=== PATIENT | male | born 1955 | race Caucasian/White ===

== ENCOUNTER → 2017-01-15 | Day surgery (SDC) | payer OTHER ==
[2017-01-11 14:11] VITALS: Ht 177.8 cm; Wt 127.3 kg
[~2017-01-15] VITALS: Ht 177.8 cm; Wt 127.3 kg
[~2017-01-15] MED LIST: ASPI81TA28 PO; ATOR-22 PO; CYAN100T PO; ENAL1TAB29 PO; ERGO500037 PO; FURO40TA3 PO; GEMF600T PO; GLC/500 PO; ISOS30TA35 PO; LIDOCAINE HCL 2% 2 ML VIAL (20MG/ML) ONE; METO25TA3 PO; MIDAZOLAM HCL 1 MG/ML 2ML VIAL ONE; ONDANSETRON INJ 2 MG/ML 2 ML VIAL ONE; OXYC-57 PO; PANT40TA PO; PREG1CAP28 PO; PROPOFOL IV EMULSION 10 MG/ML 20 ML VIAL IV ONE; SODIUM CHLORIDE 0.9% 500ML 500 ML IV ONE; SOLI10TA2 PO; TAMS0.4C38 PO
--- NOTE | 2017-01-15 08:45 | Endo History and Physical ---
History & Physical Date of Service: Jan 15, 2017. Chief Complaint: Hx polyps Referring Physician: Jennifer Phelps History of Present Illness 61 yo CM who presents for colonoscopy secondary to history of colon polyps. Past Medical History Hypertension, Kidney Disease Past Surgical History Hx Cardiac Surgery: Yes (HEART CATH, NO STENT; PACEMAKER ) Hx Internal Defibrillator: No Hx Pacemaker: No Hx Abdominal Surgery: No Hx of Implantable Prosthesis: No Hx Post-Op Nausea and Vomiting: No Hx Cancer Surgery: No Hx Thoracic Surgery: No Hx Orthopedic: Yes (L/R TKA, LT GREAT TOE AMPUTATION) Hx Urinary Tract Surgery: No Family History None Social History Smoking Status: Never Smoker Hx Substance Use: Yes (SEE MED LIST) Hx Alcohol Use: No Allergies Coded Allergies: Adhesives (Verified Allergy, Unknown, RASH, 01/11/17) Blue Dyes (Parenteral) (Verified Allergy, Unknown, UNKNOWN RX, 01/11/17) CI Pigment Blue 63 (Verified Adverse Reaction, Mild, CHEST PAIN, WEIGHT LOSS, 01/11/17) Duloxetine (Verified Adverse Reaction, Mild, CHEST PAIN, WEIGHT LOSS, 01/11) Current Medications Reported Home Medications Medications Dose Route/Sig Max Daily Dose Days Date Category Toprol-Xl (Metoprolol Succinate) 25 Mg Tabcr 25 Mg PO QAM 01/11/17 Reported Imdur Ext Rel (Isosorbide Mononitrate) 30 Mg Tabcr 1 Tab PO QAM 01/11/17 Reported Vitamin D 28614 Unit (Ergocalciferol) 50,000 Unit Cap 50,000 Unit PO MONTHLY 01/11/17 Reported Protonix (Pantoprazole Sodium) 40 Mg Tab 40 Mg PO BID 01/11/17 Reported Lyrica (Pregabalin) 75 Mg Cap 75 Mg PO BID 01/11/17 Reported Lasix (Furosemide) 40 Mg Tab 40 Mg PO BID 01/11/17 Reported Vesicare (Solifenacin) 10 Mg Tab 10 Mg PO QAM 07/27/16 Reported Vitamin B-12 (Cyanocobalamin) 100 Mcg Tab 1 Tab PO QAM 07/27/16 Reported Glucophage (Metformin Hcl) 500 Mg Tab 500 Mg PO BID 07/27/16 Reported Lipitor (Atorvastatin Calcium) 20 Mg Tab 20 Mg PO HS 01/22/15 Reported Percocet 5MG/325MG (Oxycodone/Acetaminophen) Tab 1-2 Tablets PO Q4H PRN 12/25/14 Reported Flomax (Tamsulosin Hcl) 0.4 Mg Cap 0.4 Mg PO HS 09/21/14 Reported Lopid (Gemfibrozil) 600 Mg Tab 600 Mg PO BID 04/25/13 Reported Aspirin Ec (Aspirin) 81 Mg Tab 81 Mg PO QPM 04/25/13 Reported Vital Signs Weight (Kilograms): 127.27 Height (Feet): 5 Height (Inches): 10 Date Time Temp Pulse Resp B/P Pulse Ox O2 Delivery O2 Flow Rate FiO2 01/15/17 08:07 36.4 61 18 150/83 96 Room Air Physical Exam General Appearance: WD/WN, no apparent distress Respiratory/Chest: Auscultation: breath sounds normal Cardiovascular: Heart Auscultation: RRR Abdomen: Bowel Sounds: normal Inspection & Palpation: soft, non-distended, no tenderness, guarding & rebound Assessment and Plan Assessment: 61 yo CM who presents for colonoscopy secondary to history of colon polyps. Plan: Proceed with colonoscopy.
--- NOTE | 2017-01-15 09:15 | Discharge Instructions ---
Endoscopy Patient Instructions Date / Procedure(s) Performed Jan 15, 2017. Colonoscopy Allergy Information Coded Allergies: Adhesives (Verified Allergy, Unknown, RASH, 01/11/17) Blue Dyes (Parenteral) (Verified Allergy, Unknown, UNKNOWN RX, 01/11/17) CI Pigment Blue 63 (Verified Adverse Reaction, Mild, CHEST PAIN, WEIGHT LOSS, 01/11/17) Duloxetine (Verified Adverse Reaction, Mild, CHEST PAIN, WEIGHT LOSS, 01/11) Discharge Date / Findings Jan 15, 2017. Poor bowel Prep Internal hemorrhoids Medication Instructions Stopped Medication(s): Metformin OK to resume all medications today as prescribed Reported Home Medications Medications Dose Route/Sig Max Daily Dose Days Date Category Toprol-Xl (Metoprolol Succinate) 25 Mg Tabcr 25 Mg PO QAM 01/11/17 Reported Imdur Ext Rel (Isosorbide Mononitrate) 30 Mg Tabcr 1 Tab PO QAM 01/11/17 Reported Vitamin D 30652 Unit (Ergocalciferol) 50,000 Unit Cap 50,000 Unit PO MONTHLY 01/11/17 Reported Protonix (Pantoprazole Sodium) 40 Mg Tab 40 Mg PO BID 01/11/17 Reported Lyrica (Pregabalin) 75 Mg Cap 75 Mg PO BID 01/11/17 Reported Lasix (Furosemide) 40 Mg Tab 40 Mg PO BID 01/11/17 Reported Vesicare (Solifenacin) 10 Mg Tab 10 Mg PO QAM 07/27/16 Reported Vitamin B-12 (Cyanocobalamin) 100 Mcg Tab 1 Tab PO QAM 07/27/16 Reported Glucophage (Metformin Hcl) 500 Mg Tab 500 Mg PO BID 07/27/16 Reported Lipitor (Atorvastatin Calcium) 20 Mg Tab 20 Mg PO HS 01/22/15 Reported Percocet 5MG/325MG (Oxycodone/Acetaminophen) Tab 1-2 Tablets PO Q4H PRN 12/25/14 Reported Flomax (Tamsulosin Hcl) 0.4 Mg Cap 0.4 Mg PO HS 09/21/14 Reported Lopid (Gemfibrozil) 600 Mg Tab 600 Mg PO BID 04/25/13 Reported Aspirin Ec (Aspirin) 81 Mg Tab 81 Mg PO QPM 04/25/13 Reported Provider Instructions Activity Restrictions - No exercising or heavy lifting for 24 hours. - Do not drink alcohol the day of the procedure. - Do not drive a car or operate machinery until the day after the procedure. - Do not make any important decisions or sign important papers in 24 hours after the procedure. Following Day: - Return to full activity which may include returning to work/school. Diet Start your diet with liquids and light foods (jello, soup, juice, toast). Then eat your usual diet if not nauseated. Treatment For Common After Affects For mild abdominal pain, bloating, or excessive gas: - Rest - Eat lightly - Lie on right side Repeat colonoscopy in 3 months due to poor prep. Follow-Up Information Follow-up with Jennifer Phelps as scheduled Anesthesia Information What You Should Know You have had a procedure that required some medicine to reduce anxiety and discomfort. This treatment is called moderate sedation. After receiving the treatment, you may be sleepy, but you will be able to breathe on your own. The effects of the treatment may last for several hours. Follow these instructions along with Activity/Diet recommendations noted above: * Do NOT do anything where dizziness or clumsiness would be dangerous. * Rest quietly at home today, then you can be up and about tomorrow. * Have a responsible person stay with you the rest of today. * You may have had an I.V. today. If so, you may take the dressing off later today. Recommendations Call your doctor if: * Trouble breathing * Continuous vomiting for more than 24 hours * Temperature above 101 degrees * Severe abdominal pain or bloating * Pain not relieved by pain medicine ordered * There is increased drainage or redness from any incision * A large amount of rectal bleeding greater than 2-3 tablespoons. (If you had a polyp/s removed or have hemorrhoids, a small amount of blood - from the rectum is to be expected.) * You have any unanswered questions or concerns. IN THE EVENT OF A SERIOUS EMERGENCY, GO TO THE NEAREST EMERGENCY ROOM Your discharge instructions were prepared by provider Woodrow Castro. Patient Instructions Signature Page Ck Cerna Patient (or Guardian) Signature/Date: I have read and understand the instructions given to me by my caregivers. Caregiver/RN/Doctor Signature/Date: The above-named patient and/or guardian has received patient instructions on this date. + Original Patient Signature Page (only) stays with chart. Please make copy for patient.
--- NOTE | 2017-01-15 09:25 | GI REPORT ---
Procedure Date: 01/15/2017 8:50 AM Procedure: Colonoscopy Indications: High risk colon cancer surveillance: Personal history of colonic polyps Medicines: Monitored Anesthesia Care Complications: No immediate complications. Estimated Blood Loss: Estimated blood loss: none. Procedure: Pre-Anesthesia Assessment: - Prior to the procedure, a History and Physical was performed, and patient medications and allergies were reviewed. The patient's tolerance of previous anesthesia was also reviewed. The risks and benefits of the procedure and the sedation options and risks were discussed with the patient. All questions were answered, and informed consent was obtained. Prior Anticoagulants: The patient has taken aspirin, last dose was 1 day prior to procedure. ASA Grade Assessment: III - A patient with severe systemic disease. After reviewing the risks and benefits, the patient was deemed in satisfactory condition to undergo the procedure. After I obtained informed consent, the scope was passed under direct vision. Throughout the procedure, the patient's blood pressure, pulse, and oxygen saturations were monitored continuously. The scope was introduced through the mouth, with the intention of advancing to the ileum. The scope was advanced to the ascending colon before the procedure was aborted. Medications were given. After I obtained informed consent, the scope was passed under direct vision. Throughout the procedure, the patient's blood pressure, pulse, and oxygen saturations were monitored continuously. The colonoscopy was aborted due to the difficulty of the procedure. Changing the patient to a supine position and using manual pressure did not allow for the successful completion of the procedure. The patient tolerated the procedure fairly well. The quality of the bowel preparation was poor. The ileocecal valve and the rectum were photographed. Findings: Non-bleeding internal hemorrhoids were found during retroflexion. The hemorrhoids were small. Copious quantities of stool was found in the entire colon, precluding visualization. Lavage of the area was performed using a large amount, resulting in incomplete clearance with continued poor visualization. Impression: - The procedure was aborted due to the difficulty of the procedure. - Preparation of the colon was poor. - Non-bleeding internal hemorrhoids. - Stool in the entire examined colon. - No specimens collected. Recommendation: - Resume previous diet. - Continue present medications. - Repeat colonoscopy in 3 months because the bowel preparation was poor. - Return to primary care physician as previously scheduled. Woodrow Castro DO 01/15/2017 9:24:25 AM This report has been signed electronically. Note Initiated On: 01/15/2017 8:50 AM I attest to the content of the Intraoperative Record and orders documented therein, exceptions below
[2017-01-15 09:47] VITALS: BP 137/74; PULSE 60; O2SAT 97
--- NOTE | 2017-01-15 10:16 | Anesthesiology Progress Note ---
Anesthesia Post Op Note Date & Time Jan 15, 2017 at 10:16 Vital Signs Pain Intensity: 0 Vital Signs Past 12 Hours Date Time Temp Pulse Resp B/P Pulse Ox O2 Delivery O2 Flow Rate FiO2 01/15/17 09:47 60 18 137/74 97 Room Air 01/15/17 09:33 65 18 132/77 97 Room Air 01/15/17 09:18 64 18 150/83 97 Room Air 01/15/17 08:07 36.4 61 18 150/83 96 Room Air Notes Mental Status: alert / awake / arousable, participated in evaluation Pt Amnestic to Procedure: Yes Nausea / Vomiting: adequately controlled Pain: adequately controlled Airway Patency, RR, SpO2: stable & adequate BP & HR: stable & adequate Hydration State: stable & adequate Anesthetic Complications: no major complications apparent
== END | disposition home or self-care (01) ==
LOC: C.GI 07:22
PROVIDERS: ATTEND Internal Medicine
DX: Z12.11 Encounter for screening for malignant neoplasm of colon (principal); Z86.010 Personal history of colon polyps; K64.8 Other hemorrhoids; Z95.0 Presence of cardiac pacemaker; G47.33 Obstructive sleep apnea (adult) (pediatric); I12.9 Hypertensive chronic kidney disease with stage 1 through stage 4 chronic kidney disease, or unspecified chronic kidney disease; N18.2 Chronic kidney disease, stage 2 (mild); E11.22 Type 2 diabetes mellitus with diabetic chronic kidney disease

== ENCOUNTER → 2017-01-19 | Outpatient (CLI) | payer OTHER ==
[~2017-01-19] MED LIST changes: -LIDOCAINE HCL 2% 2 ML VIAL (20MG/ML) ONE; -MIDAZOLAM HCL 1 MG/ML 2ML VIAL ONE; -ONDANSETRON INJ 2 MG/ML 2 ML VIAL ONE; -PROPOFOL IV EMULSION 10 MG/ML 20 ML VIAL IV ONE; -SODIUM CHLORIDE 0.9% 500ML 500 ML IV ONE
--- NOTE | 2017-01-19 11:46 | DIAGNOSTIC IMAGING REPORT ---
LEG LENGTH STUDY (WHOLE LEG) CLINICAL HISTORY: LUMBAGO,LEG LENGTH DISCREPANCY COMPARISON STUDY: No previous studies for comparison. FINDINGS: Bilateral total knee arthroplasties are noted. No fracture or suspicious lesion is identified within visualized skeletal structures. The right femur measures 53.2 cm and the left femur measures 54.2 cm. The right tibia measures 41.2 cm and the left measures 41 cm. IMPRESSION: 1. Right femur length of 53.2 cm and left femur length of 54.2 cm. Right tibia length of 41.2 cm and left tibia length of 41 cm. Total right leg length of 94.4 cm and total left leg length of 95.2 cm. 2. Status post total bilateral knee arthroplasties. Electronically signed by: Kris Johnson M.D. 01/19/2017 11:44 AM Dictated Date/Time: 01/19/2017 11:41 AM
== END | disposition home or self-care (01) ==
LOC: C.RADBC 10:59
PROVIDERS: ATTEND Anesthesiology
DX: M54.5 Low back pain (principal); M21.70 Unequal limb length (acquired), unspecified site

== ENCOUNTER → 2017-01-22 | Outpatient (CLI) | payer OTHER ==
[~2017-01-22] VITALS: Ht 177.8 cm; Wt 129.1 kg
[2017-01-22 15:38] VITALS: BP 108/69; PULSE 87; Ht 177.8 cm; Wt 129.1 kg
== END | disposition home or self-care (01) ==
LOC: C.NEUR 14:50
PROVIDERS: ATTEND Internal Medicine Pulmonary Disease
DX: G47.33 Obstructive sleep apnea (adult) (pediatric) (principal)

== ENCOUNTER → 2017-03-09 | Outpatient (CLI) | payer OTHER ==
[2017-03-09 17:34] LABS: HEMATOCRIT 41.9 % (42-52); MEAN CELL VOLUME 92.9 fL (80-100); MEAN CORPUSCULAR HEMOGLOBIN 31.3 pg (25-34); MEAN CORPUSCULAR HGB CONC 33.7 g/dl (32-36); MEAN PLATELET VOLUME 10.9 fL (7.4-10.4); PLATELET COUNT 231 K/uL (130-400); RED BLOOD COUNT 4.51 M/uL (4.7-6.1); WHITE BLOOD COUNT 6.61 K/uL (4.8-10.8)
[2017-03-09 17:43] LABS: BLOOD UREA NITROGEN 39 mg/dl (7-18); BUN/CREATININE RATIO 27.5 (10-20); CARBON DIOXIDE 28 mmol/L (21-32); CHLORIDE 102 mmol/L (98-107); GLUCOSE 173 mg/dl (70-99); PHOSPHORUS 3.7 mg/dl (2.5-4.9); POTASSIUM 3.9 mmol/L (3.5-5.1); SODIUM 140 mmol/L (136-145)
[2017-03-09 17:47] LABS: URINE APPEARANCE CLEAR (CLEAR); URINE BILIRUBIN NEG (NEG); URINE COLOR YELLOW; URINE EPITHELIAL CELL AUTO 0-5 /lpf (0-5); URINE NITRITE NEG (NEG); URINE SPECIFIC GRAVITY 1.009 (1.000-1.030); UROBILINOGEN NEG (NEG)
[2017-03-09 17:52] LABS: MANUAL MICROSCOPIC REQUIRED? NO; REVIEW REQ? NO
[2017-03-09 17:57] LABS: URINE TOTAL PROTEIN < 5.0 mg/dl (0-11.9)
== END | disposition home or self-care (01) ==
LOC: C.LABBFT 15:29
PROVIDERS: ATTEND Internal Medicine Nephrology
DX: R80.9 Proteinuria, unspecified (principal); E55.9 Vitamin D deficiency, unspecified; N18.3 Chronic kidney disease, stage 3 (moderate); D64.9 Anemia, unspecified

== ENCOUNTER 2017-03-27 09:53 | Emergency (ER) | payer OTHER ==
[~2017-03-27] VITALS: Ht 177.8 cm; Wt 134.2 kg
[2017-03-27 09:58] VITALS: TEMP 36.8; Ht 177.8 cm; Wt 134.2 kg
--- NOTE | 2017-03-27 10:29 | EMERGENCY ROOM VISIT NOTE ---
History Report prepared by Juan: Sourav Thompson Under the Supervision of: Dr. Amy Giron D.O. First contact with patient: 10:07 Chief Complaint: SWELLING TO EXTREMITY Stated Complaint: SWELLING TO RIGHT ARM History of Present Illness The patient is a 61 year old male who presents to the Emergency Room with complaints of worsening swelling to his right arm beginning this morning. He notes he was seen at the [facility] at [place] 4 days ago and was told he has cellulitis in his right forearm. He notes his symptoms began about 3 to 4 days before he was seen at the clinic. He was given Bactrim and has been on Bactrim for 4 days, but has not had relief of his symptoms. The patient reports the area of abscess began oozing this morning, and that his hand and arm began to swell. He adds that the area on his right forearm has been hard since the onset of his symptoms, and is currently tender. The patient notes having a history of cellulitis in his legs, but denies any new leg cramping or swelling currently. He adds that he has diabetes, and his sugar level was 140 yesterday; he did not check his levels this morning. The patient denies having any fever, abdominal pain, nausea, vomiting, or diarrhea, but does admit to some chills. Source of History: patient Onset: this morning Position: arm (right) Quality: other (swelling; arm pain) Timing: worsening Associated Symptoms: + chills, No abdominal pain, No diarrhea, No fevers, No nausea, No vomiting Note: Patient denies any new leg cramping or swelling. Review of Systems See HPI for pertinent positives & negatives. A total of 10 systems reviewed and were otherwise negative. Past Medical & Surgical Medical Problems: (1) bradycardia, second degree heart block (2) CAROTID ARTERY OCCLUSION W O CEREBRAL INFARCTION (3) Diabetic peripheral neuropathy associated with type 2 diabetes mellitus (4) Diabetic retinopathy (5) DIAPHRAGMATIC HERNIA (6) DM type 2 (diabetes mellitus, type 2) (7) ESOPHAGEAL STRICTURE (8) GERD (gastroesophageal reflux disease) (9) History of compression fracture of spine (10) History of diabetic ulcer of foot (11) History of osteomyelitis (12) History of pleurisy (13) HYPERLIPIDEMIA NEC/NOS (14) HYPERTENSION NOS (15) Loss of sensation (16) NEUROPATHY IN DIABETES (17) Obstructive sleep apnea (18) Osteoarthritis (19) Status post partial amputation of foot Surgical Problems: (1) Amputated great toe of left foot (2) H/O arthroscopy of knee (3) History of ear surgery (4) History of right knee joint replacement Family History Diabetes mellitus Heart disease Hypertension Social History Smoking Status: Never Smoker Alcohol Use: none Drug Use: none Marital Status: Housing Status: lives with friends Occupation Status: disabled Current/Historical Medications Scheduled Aspirin (Aspirin Ec), 81 MG PO QPM Atorvastatin (Lipitor), 20 MG PO HS Cyanocobalamin (Vitamin B-12), 1 TAB PO QAM Enalapril Maleate (Vasotec), 2.5 MG PO DAILY Ergocalciferol (Vitamin D 74502 Unit), 50,000 UNIT PO WK Furosemide (Lasix), 40 MG PO BID Gemfibrozil (Lopid), 600 MG PO BID Isosorbide Mononitrate Ext Rel (Imdur Ext Rel), 1 TAB PO QAM Metformin Hcl (Glucophage), 500 MG PO BID Metoprolol Succ (Toprol Xl) (Toprol-Xl), 25 MG PO QAM Pantoprazole (Protonix), 40 MG PO BID Pregabalin (Lyrica), 75 MG PO BID Solifenacin (Vesicare), 10 MG PO QAM Tamsulosin Hcl (Flomax), 0.4 MG PO HS Scheduled PRN Oxycodone/Acetaminophen 5MG/325MG (Percocet 5MG/325MG), 1-2 TABLETS PO Q4H PRN for Pain Allergies Coded Allergies: Adhesives (Verified Allergy, Unknown, RASH, 03/27/17) Blue Dyes (Parenteral) (Verified Allergy, Unknown, UNKNOWN RX, 03/27/17) CI Pigment Blue 63 (Verified Adverse Reaction, Mild, CHEST PAIN, WEIGHT LOSS, 03/27/17) Duloxetine (Verified Adverse Reaction, Mild, CHEST PAIN, WEIGHT LOSS, 03/27) Physical Exam Vital Signs Date Time Temp Pulse Resp B/P Pulse Ox O2 Delivery O2 Flow Rate FiO2 03/27/17 14:28 79 20 120/68 94 Room Air 03/27/17 12:53 60 117/70 90 Room Air 03/27/17 11:50 60 96/51 90 Room Air 03/27/17 09:58 36.8 64 18 122/77 93 Room Air Physical Exam General: Obese man. HEENT: Head - normocephalic and atraumatic Pupils are equal, round, and reactive to light. Extraocular eye muscles are intact, and sclera are anicteric. Nose - moist nasal mucosa without discharge. Mouth - moist buccal mucosa. Oropharynx is nonerythematous and there is no tonsillar exudate or edema noted. Neck: Supple; no JVD, nuchal rigidity, cervical lymphadenopathy. Heart: Regular rate and rhythm. There is a normal S1 and S2 with no murmurs, clicks, or gallops appreciated. Lungs: Clear to auscultation bilaterally with no wheezes, rales, or rhonchi. Abdomen: Soft, completely nontender, nondistended, with good bowel sounds. There are no palpable pulsatile masses or hepatosplenomegaly. There is no guarding, rigidity, or rebound noted. Extremities: Erythema and edema from the right elbow extending down into the right hand. Area of skin abscess at proximal right forearm. There are easily palpable peripheral pulses. Skin: warm and dry with good turgor and no rashes. Medical Decision & Procedures Laboratory Results 03/27/17 10:25 Red Blood Count 4.18, Mean Corpuscular Volume 92.3, Mean Corpuscular Hemoglobin 31.6, Mean Corpuscular Hemoglobin Concent 34.2, Mean Platelet Volume 9.7, Neutrophils (%) (Auto) 75.4, Lymphocytes (%) (Auto) 12.1, Monocytes (%) (Auto) 11.4, Eosinophils (%) (Auto) 0.5, Basophils (%) (Auto) 0.2, Neutrophils # (Auto ) 7.13, Lymphocytes # (Auto) 1.15, Monocytes # (Auto) 1.08, Eosinophils # (Auto ) 0.05, Basophils # (Auto) 0.02 03/27/17 10:25 Test 03/27/17 10:25 White Blood Count 9.47 K/uL (4.8-10.8) Red Blood Count 4.18 M/uL (4.7-6.1) Hemoglobin 13.2 g/dL (14.0-18.0) Hematocrit 38.6 % (42-52) Mean Corpuscular Volume 92.3 fL (80-100) Mean Corpuscular Hemoglobin 31.6 pg (25-34) Mean Corpuscular Hemoglobin Concent 34.2 g/dl (32-36) Platelet Count 227 K/uL (130-400) Mean Platelet Volume 9.7 fL (7.4-10.4) Neutrophils (%) (Auto) 75.4 % Lymphocytes (%) (Auto) 12.1 % Monocytes (%) (Auto) 11.4 % Eosinophils (%) (Auto) 0.5 % Basophils (%) (Auto) 0.2 % Neutrophils # (Auto) 7.13 K/uL (1.4-6.5) Lymphocytes # (Auto) 1.15 K/uL (1.2-3.4) Monocytes # (Auto) 1.08 K/uL (0.11-0.59) Eosinophils # (Auto) 0.05 K/uL (0-0.5) Basophils # (Auto) 0.02 K/uL (0-0.2) RDW Standard Deviation 48.2 fL (36.4-46.3) RDW Coefficient of Variation 14.3 % (11.5-14.5) Immature Granulocyte % (Auto) 0.4 % Immature Granulocyte # (Auto) 0.04 K/uL (0.00-0.02) Anion Gap 9.0 mmol/L (3-11) Est Creatinine Clear Calc Drug Dose 58.7 ml/min Estimated GFR () 45.7 Estimated GFR (Non- 39.5 BUN/Creatinine Ratio 18.8 (10-20) Calcium Level 8.8 mg/dl (8.5-10.1) Laboratory results per my review. Medications Administered Medications (Trade) Dose Ordered Sig/John Route Start Time Stop Time Status Last Admin Dose Admin Lidocaine HCl 20 ml 20 ml ONE ONCE INFIL 03/27/17 10:30 03/27/17 10:31 DC 03/27/17 11:03 20 ML Daptomycin 600 mg/ Sodium Chloride 62 ml @ 100 mls/hr NOW STAT IV 03/27/17 12:51 03/27/17 13:28 DC 03/27/17 13:28 100 MLS/HR Sodium Chloride (Nss 500ml) 500 ml @ 999 mls/hr Q31M STAT IV 03/27/17 12:58 03/27/17 13:28 DC 03/27/17 13:28 999 MLS/HR Procedure Medications Ordered: 1030: Ordered Lidocaine HCl 20 ml INFIL. 1251: Ordered Daptomycin 600 mg/Sodium Chloride 62 ml @ 100 mls/hr IV. 1258: Ordered NSS 500 ml @ 999 mls/hr IV. Incision & Drainage Indication: Abscess. Location: Right proximal forearm Verbal consent was obtained. A time out was taken and the correct patient and site identified. The skin was prepped with betadine and a sterile field set. The wound was anesthetized with 4 ml of 1% lidocaine without epinephrine. The abscess cavity was entered with a number 11 blade and pus was expressed. Copious irrigation was performed using saline. The wound was explored for foreign bodies and none found. Debridement was not performed. sterile dressing applied. Detailed wound care instructions and signs and symptoms of worsening infection reviewed with the patient. No complications and the patient tolerated the procedure well. ED Course 1012: Past medical records reviewed. The patient was evaluated in room C10. A complete history and physical exam was performed. An IV lock was initiated and labs were drawn as above. 1030: Ordered Lidocaine HCl 20 ml INFIL. An I&D was performed of the abscess in the right forearm. 1251: Ordered Daptomycin 600 mg/Sodium Chloride 62 ml @ 100 mls/hr IV. 1258: Ordered NSS 500 ml @ 999 mls/hr IV. 1419: I reassessed the patient. He received his antibiotics and will follow up here tomorrow. 1420: Upon reevaluation, the patient is doing well. I discussed findings and results with the patient. He verbalized agreement of the treatment plan. The patient was discharged home. Medical Decision The patient is a 61 year old male who presents to the Emergency Room with complaints of worsening swelling to his right arm beginning this morning. Differentials Diagnoses: Skin abscess, cellulitis, osteomyelitis, and diabetic ulcer. Laboratory Interpretation: BUN is 34; creatinine is 1.8; glucose is 137; no leukocytosis; mild anemia with a hemoglobin of 13.2. This is a 61-year-old male patient presents to the emergency Department cellulitis that is not improving on Bactrim. The patient an obvious fluctuant abscess in the right proximal forearm. It was incised and drained as described above. The patient received a dose of IV daptomycin here in the emergency room. IV lock was left in place. The patient will see me back in the emergency department within 24 hours to have the wound rechecked. I spoke with the patient about his worsening renal insufficiency. He will follow-up with his PCP with regards to this. Impression Primary Impression: Abscess of right forearm Additional Impression: Renal insufficiency Scribe Attestation The scribe's documentation has been prepared under my direction and personally reviewed by me in its entirety. I confirm that the note above accurately reflects all work, treatment, procedures, and medical decision making performed by me. Departure Information Dispostion Home / Self-Care Referrals No Doctor, Assigned (PCP) Patient Instructions ED Abscess Tong, My [facility] Additional Instructions Leave IV in place. Rest. Keep wound clean and dry. Return by noon tomorrow to see Dr. Giron Problem Qualifiers
[2017-03-27] MEDS ORDERED: XYLOCAINE 1%/SOD BICARB 20 ML VIAL INFIL ONE (10:30)
[2017-03-27 10:47] LABS: BASO % 0.2 %; BASO ABS # 0.02 K/uL (0-0.2); COMPLETE YES; EOS % 0.5 %; HEMATOCRIT 38.6 % (42-52); IG% 0.4 %; LYMPH % 12.1 %; LYMPH ABS # 1.15 K/uL (1.2-3.4); MEAN CELL VOLUME 92.3 fL (80-100); MEAN CORPUSCULAR HEMOGLOBIN 31.6 pg (25-34); MEAN CORPUSCULAR HGB CONC 34.2 g/dl (32-36); MEAN PLATELET VOLUME 9.7 fL (7.4-10.4); MONO % 11.4 %; NEUT % 75.4 %; PLATELET COUNT 227 K/uL (130-400); RED BLOOD COUNT 4.18 M/uL (4.7-6.1); WHITE BLOOD COUNT 9.47 K/uL (4.8-10.8)
[2017-03-27 11:09] LABS: BUN/CREATININE RATIO 18.8 (10-20); CALCIUM 8.8 mg/dl (8.5-10.1); CREATININE 1.8 mg/dl (0.60-1.40); POTASSIUM 3.7 mmol/L (3.5-5.1)
[2017-03-27] MEDS ORDERED: DAPTOmycin IV 600 MG in SODIUM CHLORIDE 0.9% 50ML 50 ML IV STA (12:51)
[2017-03-27] MEDS ORDERED: SODIUM CHLORIDE 0.9% 500ML 500 ML IV STA (12:58)
[2017-03-27 14:28] VITALS: BP 120/68; PULSE 79; O2SAT 94
--- NOTE | 2017-03-29 13:54 | Pharmacy Progress Note ---
ED Pharmacist Culture FollowUp Date of Service: March 29, 2017. Patient was evaluated in the ED on 03/27/17 for R forearm abscess/cellulitis. The deep wound cx from that day grew MSSA. The patient was admitted to [facility] that day and is currently being treated with IV daptomycin 4mg/kg IV Q 24 hrs. Upon review of further cultures, the patient's blood cultures are also growing staph aureus. I contacted hospitalist, Dr Quintanilla, to notify her of positive blood cx results and suggest increasing the dose of daptomycin to 6mg/kg Q 24 hrs for staph bacteremia - verbal order obtained. No further action required from ED standpoint.
--- NOTE | 2017-03-30 10:57 | Pharmacy Progress Note ---
ED Pharmacist Culture FollowUp Date of Service: March 30, 2017. Patient remains hospitalized and is receiving Daptomycin 6mg/kg IV Q 24 hrs for staph bacteremia + R forearm cellulitis/abscess. Blood cx's and wound cx sensitivities finalized today, both staph aureus species are sensitive to daptomycin. One blcx is growing CoN staph Not Lugdunensis, this is likely a contaminant; but if were pathogenic Daptomycin would also over good coverage. No action required at this time.
== END 2017-03-27 14:31 | disposition home or self-care (01) ==
LOC: C.EDB 09:54 → C.EDC 14:31
DX: L02.413 Cutaneous abscess of right upper limb (principal); N28.9 Disorder of kidney and ureter, unspecified; E11.42 Type 2 diabetes mellitus with diabetic polyneuropathy; E78.5 Hyperlipidemia, unspecified; I10 Essential (primary) hypertension; M19.90 Unspecified osteoarthritis, unspecified site; E11.319 Type 2 diabetes mellitus with unspecified diabetic retinopathy without macular edema; K21.9 Gastro-esophageal reflux disease without esophagitis; Z89.439 Acquired absence of unspecified foot; Z89.412 Acquired absence of left great toe; Z98.890 Other specified postprocedural states; Z96.651 Presence of right artificial knee joint; Z83.3 Family history of diabetes mellitus; Z82.49 Family history of ischemic heart disease and other diseases of the circulatory system; Z79.82 Long term (current) use of aspirin; Z79.84 Long term (current) use of oral hypoglycemic drugs; Z79.899 Other long term (current) drug therapy

== ENCOUNTER 2017-03-28 12:46 | Inpatient (IN) | payer OTHER ==
[~2017-03-28] VITALS: Ht 177.8 cm; Wt 133.9 kg
--- NOTE | 2017-03-28 13:21 | EMERGENCY ROOM VISIT NOTE ---
History Report prepared by Juan: Sourav Thompson Under the Supervision of: Dr. Amy Giron D.O. First contact with patient: 13:01 Chief Complaint: WOUND RECHECK Stated Complaint: RECHECK ON ARM History of Present Illness The patient is a 61 year old male who presents to the Emergency Room with complaints of a recheck of a wound on his right arm. He was here yesterday for an abscess to his right forearm. He was given antibiotics, and is here for a recheck. The patient notes the right forearm is still somewhat tender, and reports some abdominal pain and nausea. He did not check his sugar levels. Source of History: patient Onset: today Position: other (right forearm) Quality: other (wound recheck) Timing: other (episode) Associated Symptoms: + abdominal pain, + nausea Note: Patient notes some tenderness in forearm. Review of Systems See HPI for pertinent positives & negatives. A total of 10 systems reviewed and were otherwise negative. Past Medical & Surgical Medical Problems: (1) bradycardia, second degree heart block (2) CAROTID ARTERY OCCLUSION W O CEREBRAL INFARCTION (3) Diabetic peripheral neuropathy associated with type 2 diabetes mellitus (4) Diabetic retinopathy (5) DIAPHRAGMATIC HERNIA (6) DM type 2 (diabetes mellitus, type 2) (7) ESOPHAGEAL STRICTURE (8) GERD (gastroesophageal reflux disease) (9) History of compression fracture of spine (10) History of diabetic ulcer of foot (11) History of osteomyelitis (12) History of pleurisy (13) HYPERLIPIDEMIA NEC/NOS (14) HYPERTENSION NOS (15) Loss of sensation (16) NEUROPATHY IN DIABETES (17) Obstructive sleep apnea (18) Osteoarthritis (19) Status post partial amputation of foot Surgical Problems: (1) Amputated great toe of left foot (2) H/O arthroscopy of knee (3) History of ear surgery (4) History of right knee joint replacement Family History Diabetes mellitus Heart disease Hypertension Social History Smoking Status: Never Smoker Alcohol Use: none Drug Use: none Marital Status: Housing Status: lives with friends Occupation Status: disabled Current/Historical Medications Scheduled Aspirin (Aspirin Ec), 81 MG PO QPM Atorvastatin (Lipitor), 20 MG PO HS Cyanocobalamin (Vitamin B-12), 1 TAB PO QAM Enalapril Maleate (Vasotec), 2.5 MG PO DAILY Ergocalciferol (Vitamin D 50577 Unit), 50,000 UNIT PO WK Furosemide (Lasix), 40 MG PO BID Gemfibrozil (Lopid), 600 MG PO BID Isosorbide Mononitrate Ext Rel (Imdur Ext Rel), 1 TAB PO QAM Metformin Hcl (Glucophage), 500 MG PO BID Metoprolol Succ (Toprol Xl) (Toprol-Xl), 25 MG PO QAM Pantoprazole (Protonix), 40 MG PO BID Pregabalin (Lyrica), 75 MG PO BID Solifenacin (Vesicare), 10 MG PO QAM Tamsulosin Hcl (Flomax), 0.4 MG PO HS Scheduled PRN Oxycodone/Acetaminophen 5MG/325MG (Percocet 5MG/325MG), 1-2 TABLETS PO Q4H PRN for Pain Allergies Coded Allergies: Adhesives (Verified Allergy, Unknown, RASH, 03/27/17) Blue Dyes (Parenteral) (Verified Allergy, Unknown, UNKNOWN RX, 03/27/17) CI Pigment Blue 63 (Verified Adverse Reaction, Mild, CHEST PAIN, WEIGHT LOSS, 03/27/17) Duloxetine (Verified Adverse Reaction, Mild, CHEST PAIN, WEIGHT LOSS, 03/27) Physical Exam Vital Signs Date Time Temp Pulse Resp B/P Pulse Ox O2 Delivery O2 Flow Rate FiO2 03/28/17 14:48 59 18 114/62 92 Room Air 03/28/17 12:53 36.9 67 20 132/68 92 Room Air Physical Exam Neck: Supple; no JVD, nuchal rigidity, cervical lymphadenopathy Heart: Regular rate and rhythm. There is a normal S1 and S2 with no murmurs, clicks, or gallops appreciated. Lungs: Clear to auscultation bilaterally with no wheezes, rales, or rhonchi. Abdomen: Soft, completely nontender, nondistended, with good bowel sounds. There are no palpable pulsatile masses or hepatosplenomegaly. There is no guarding, rigidity, or rebound noted. Extremities: Persistent erythema and edema to the right forearm and hand. Proximal forearm wound still draining daily pus. This appears fluctuant. Skin: warm and dry with good turgor and no rashes. Medical Decision & Procedures ER Provider Diagnostic Interpretation: Radiology results as stated below per my review and the radiologist's interpretation: RIGHT FOREARM 2 VIEWS ROUTINE FINDINGS: Note is made of a punctate 2 mm radiodensity along the lateral aspect of the distal right radius. This could reflect a small foreign body. No additional foreign bodies are identified on this exam. There are soft tissue swelling of the right forearm. There is no radiographic evidence of ostomy lies of the right radius or ulna. IMPRESSION: 1. No acute fracture or radiographic evidence of osteomyelitis of the right radius or ulna. 2. Punctate metallic density of the distal right forearm, along the lateral dorsal aspect of the distal right radius. This could reflect a tiny foreign body which is not at the site of soft tissue swelling/wound. Electronically signed by: Kris Johnson M.D. 03/28/2017 2:30 PM Dictated Date/Time: 03/28/2017 2:25 PM Laboratory Results 03/28/17 13:35 Red Blood Count 3.89, Mean Corpuscular Volume 91.3, Mean Corpuscular Hemoglobin 31.1, Mean Corpuscular Hemoglobin Concent 34.1, Mean Platelet Volume 10.0, Neutrophils (%) (Auto) 73.7, Lymphocytes (%) (Auto) 12.8, Monocytes (%) (Auto) 12.3, Eosinophils (%) (Auto) 0.5, Basophils (%) (Auto) 0.4, Neutrophils # (Auto ) 5.84, Lymphocytes # (Auto) 1.01, Monocytes # (Auto) 0.97, Eosinophils # (Auto ) 0.04, Basophils # (Auto) 0.03 Test 03/28/17 13:35 White Blood Count 7.91 K/uL (4.8-10.8) Red Blood Count 3.89 M/uL (4.7-6.1) Hemoglobin 12.1 g/dL (14.0-18.0) Hematocrit 35.5 % (42-52) Mean Corpuscular Volume 91.3 fL (80-100) Mean Corpuscular Hemoglobin 31.1 pg (25-34) Mean Corpuscular Hemoglobin Concent 34.1 g/dl (32-36) Platelet Count 219 K/uL (130-400) Mean Platelet Volume 10.0 fL (7.4-10.4) Neutrophils (%) (Auto) 73.7 % Lymphocytes (%) (Auto) 12.8 % Monocytes (%) (Auto) 12.3 % Eosinophils (%) (Auto) 0.5 % Basophils (%) (Auto) 0.4 % Neutrophils # (Auto) 5.84 K/uL (1.4-6.5) Lymphocytes # (Auto) 1.01 K/uL (1.2-3.4) Monocytes # (Auto) 0.97 K/uL (0.11-0.59) Eosinophils # (Auto) 0.04 K/uL (0-0.5) Basophils # (Auto) 0.03 K/uL (0-0.2) RDW Standard Deviation 47.5 fL (36.4-46.3) RDW Coefficient of Variation 14.1 % (11.5-14.5) Immature Granulocyte % (Auto) 0.3 % Immature Granulocyte # (Auto) 0.02 K/uL (0.00-0.02) Erythrocyte Sedimentation Rate 41 mm/hr (0-14) C-Reactive Protein 16.50 mg/dl (0-0.29) Laboratory results per my review. Medications Administered Medications (Trade) Dose Ordered Sig/John Route Start Time Stop Time Status Last Admin Dose Admin Ondansetron HCl (Zofran Inj) 4 mg NOW STAT IV 03/28/17 13:26 03/28/17 13:28 DC 03/28/17 13:34 4 MG Procedure Medications Ordered: 1326: Ordered Zofran Inj 4 mg IV. ED Course 1315: Past medical records reviewed. The patient was evaluated in room D6. A complete history and physical exam was performed. The wound was undressed and does not appear much improved from yesterday. 1326: The patient is complaining of not given. I Ordered Zofran Inj 4 mg IV. Labs were drawn to compared to yesterday. 1451: I updated the patient. 1453: Discussed the patient's case with Dr. Junior. The patient will be evaluated for further management. Medical Decision The patient is a 61 year old male who presents to the Emergency Room with complaints of a recheck of a wound on his right arm. Differential Diagnoses: Cellulitis, wound infection, and osteomyelitis. Laboratory Interpretations: Lactic is 0.79; WBC down to 7.9; hemoglobin is 12.1 ; sed rate of 41; C-reactive protein is 16.5. The patient went for an x-ray of the right forearm to rule out possibility of osteomyelitis. This was negative. However, the wound did not appear improved at all despite having eye yesterday and IV antibiotics. I feel the patient will require additional I & D and continuous IV antibiotics The patient has persistent cellulitis about the arm. Consults Time Called: [id number] Consulting Physician: Dr. Junior, [facility] Returned Call: [phone] Discussed the patient's case with Dr. Junior. The patient will be evaluated for further management. Impression Primary Impression: Abscess of right forearm Additional Impression: Cellulitis of right forearm Scribe Attestation The scribe's documentation has been prepared under my direction and personally reviewed by me in its entirety. I confirm that the note above accurately reflects all work, treatment, procedures, and medical decision making performed by me. Departure Information Dispostion Being Evaluated By Hospitalist Referrals No Doctor, Assigned (PCP) Patient Instructions My [facility] Problem Qualifiers
[2017-03-28] MEDS ORDERED: ONDANSETRON INJ 2 MG/ML 2 ML VIAL IV STA (13:26)
--- NOTE | 2017-03-28 14:32 | DIAGNOSTIC IMAGING REPORT ---
RIGHT FOREARM 2 VIEWS ROUTINE CLINICAL HISTORY: Right forearm wound. Evaluate for osteomyelitis. COMPARISON: None FINDINGS: Note is made of a punctate 2 mm radiodensity along the lateral aspect of the distal right radius. This could reflect a small foreign body. No additional foreign bodies are identified on this exam. There are soft tissue swelling of the right forearm. There is no radiographic evidence of ostomy lies of the right radius or ulna. IMPRESSION: 1. No acute fracture or radiographic evidence of osteomyelitis of the right radius or ulna. 2. Punctate metallic density of the distal right forearm, along the lateral dorsal aspect of the distal right radius. This could reflect a tiny foreign body which is not at the site of soft tissue swelling/wound. Electronically signed by: Kris Johnson M.D. 03/28/2017 2:30 PM Dictated Date/Time: 03/28/2017 2:25 PM
[2017-03-28 14:39] LABS: BASO % 0.4 %; BASO ABS # 0.03 K/uL (0-0.2); COMPLETE YES; EOS % 0.5 %; HEMATOCRIT 35.5 % (42-52); IG% 0.3 %; LYMPH % 12.8 %; LYMPH ABS # 1.01 K/uL (1.2-3.4); MEAN CELL VOLUME 91.3 fL (80-100); MEAN CORPUSCULAR HEMOGLOBIN 31.1 pg (25-34); MEAN CORPUSCULAR HGB CONC 34.1 g/dl (32-36); MONO % 12.3 %; NEUT % 73.7 %; PLATELET COUNT 219 K/uL (130-400); RED BLOOD COUNT 3.89 M/uL (4.7-6.1); WHITE BLOOD COUNT 7.91 K/uL (4.8-10.8)
[2017-03-28] MEDS ORDERED: ACETAMINOPHEN 325 MG TAB PO PRN (16:00)
[2017-03-28] MEDS ORDERED: DEXTROSE 50% 50 ML SYR IV PRN (16:00)
[2017-03-28] MEDS ORDERED: GLUCAGON FOR INJ 1 MG VIAL SQ PRN (16:00)
[2017-03-28] MEDS ORDERED: ONDANSETRON INJ 2 MG/ML 2 ML VIAL IV PRN (16:00)
[2017-03-28] MEDS ORDERED: MAGNESIUM HYDROXIDE SUSP 30 ML UDC PO PRN (16:00)
[2017-03-28] MEDS ORDERED: GLUCOSE 40% GEL 15 GM TUBE PO PRN (16:00)
[2017-03-28] MEDS ORDERED: GLUCOSE 10 TABS/TUBE PO PRN (16:00)
[2017-03-28] MEDS ORDERED: OXYCODONE/ACETAMINOPHEN 5-325 TAB PO PRN (16:15)
--- NOTE | 2017-03-28 16:26 | History and Physical ---
History & Physical Date & Time of Service: Mar 28, 2017 at 16:11 Chief Complaint: Recheck On Arm Primary Care Physician: Jennifer Phelps M.D. History of Present Illness Source: patient 61 y/o M c/o R arm pain. Pt came to the ED for this issue yesterday. Pt reported that he had been seen at an urgent care for the same issue a few days prior. He was put on bactrim at that time, however the pain to his R UE continued to worsen. In the ED, pt had an I&D which was reported by the providing physician as having quite substantial drainage. He was given a dose of dapto and d/c'd with IV access to return today for follow-up. Upon reassessment, Dr. Giron feels the redness is somewhat improved, however the amount of ongoing drainage is still quite substantial given the I&D and dapto use. Blood cx done in the ED on 03/27 are still pending. Pt still with substantial pain to his R forearm. Pt denies any recent hx of trauma or other break in his skin. 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 No hx of major trauma with metal, but he states that in the type of work he did there were frequently more minor injuries. He did have an infection in his foot which [facility], but no IV abx and this was about 2 years ago. Pt has felt fine otherwise. Pt denies fever, SOB, chest pain, abd pain, n/v/c/d, LE pain. Pt always has LE swelling and this is at baseline. ROS as noted above, otherwise neg. Past Medical/Surgical History Medical Problems: (1) CAROTID ARTERY OCCLUSION W O CEREBRAL INFARCTION Status: Chronic (2) Diabetic retinopathy Permanent Comment: mild Status: Chronic (3) DIAPHRAGMATIC HERNIA Status: Chronic (4) DM type 2 (diabetes mellitus, type 2) Status: Chronic (5) ESOPHAGEAL STRICTURE Status: Chronic (6) GERD (gastroesophageal reflux disease) Status: Chronic (7) History of compression fracture of spine Status: Chronic (8) History of osteomyelitis Permanent Comment: L great toe, s/p amputation 2010 Status: Chronic (9) History of pleurisy Permanent Comment: 2004 Status: Chronic (10) HYPERLIPIDEMIA NEC/NOS Status: Chronic (11) HYPERTENSION NOS Status: Chronic (12) NEUROPATHY IN DIABETES Status: Chronic (13) Obstructive sleep apnea Status: Chronic (14) Osteoarthritis Status: Chronic Surgical Problems: (1) Amputated great toe of left foot Status: Chronic (2) H/O arthroscopy of knee Permanent Comment: bilateral Status: Chronic (3) History of ear surgery Permanent Comment: replace middle ear bone Status: Chronic (4) History of right knee joint replacement Status: Chronic Family History Family history was reviewed; no changes noted. Social History Smoking Status: Never Smoker Alcohol Use: none Drug Use: none Marital Status: Housing status: lives alone Occupational Status: disabled Immunizations History of Influenza Vaccine: N/A History of Tetanus Vaccine?: Yes History of Pneumococcal: Yes History of Hepatitis B Vaccine: No Multi-Drug Resistant Organisms History of MDRO: No Allergies Coded Allergies: Adhesives (Verified Allergy, Unknown, RASH, 03/27/17) Blue Dyes (Parenteral) (Verified Allergy, Unknown, UNKNOWN RX, 03/27/17) CI Pigment Blue 63 (Verified Adverse Reaction, Mild, CHEST PAIN, WEIGHT LOSS, 03/27/17) Duloxetine (Verified Adverse Reaction, Mild, CHEST PAIN, WEIGHT LOSS, 03/27) Home Medications Scheduled Aspirin (Aspirin Ec), 81 MG PO QPM Atorvastatin (Lipitor), 20 MG PO HS Cyanocobalamin (Vitamin B-12), 1 TAB PO QAM Enalapril Maleate (Vasotec), 2.5 MG PO DAILY Ergocalciferol (Vitamin D 63471 Unit), 50,000 UNIT PO WK Furosemide (Lasix), 40 MG PO BID Gemfibrozil (Lopid), 600 MG PO BID Isosorbide Mononitrate Ext Rel (Imdur Ext Rel), 1 TAB PO QAM Metformin Hcl (Glucophage), 500 MG PO BID Metoprolol Succ (Toprol Xl) (Toprol-Xl), 25 MG PO QAM Pantoprazole (Protonix), 40 MG PO BID Pregabalin (Lyrica), 75 MG PO BID Solifenacin (Vesicare), 10 MG PO QAM Tamsulosin Hcl (Flomax), 0.4 MG PO HS Scheduled PRN Oxycodone/Acetaminophen 5MG/325MG (Percocet 5MG/325MG), 1-2 TABLETS PO Q4H PRN for Pain Physical Exam Vital Signs Date Time Temp Pulse Resp B/P Pulse Ox O2 Delivery O2 Flow Rate FiO2 03/28/17 14:48 59 18 114/62 92 Room Air 03/28/17 12:53 36.9 67 20 132/68 92 Room Air General Appearance: no apparent distress, + obese Head: normocephalic, atraumatic Respiratory/Chest: normal breath sounds, no respiratory distress Cardiovascular: regular rate, rhythm, normal peripheral pulses Abdomen/GI: non tender, soft Extremities/Musculoskelatal: no calf tenderness, + pedal edema (trace, pitting) Neurologic/Psych: alert, normal mood/affect, oriented x 3 Skin: warm/dry, + pertinent finding (R forearm with open incision site that is with purulent drainage, redness noted) Diagnostics Laboratory Results Results Past 24 Hours Test 03/28/17 13:35 Range/Units White Blood Count 7.91 4.8-10.8 K/uL Red Blood Count 3.89 4.7-6.1 M/uL Hemoglobin 12.1 14.0-18.0 g/dL Hematocrit 35.5 42-52 % Mean Corpuscular Volume 91.3 80-100 fL Mean Corpuscular Hemoglobin 31.1 25-34 pg Mean Corpuscular Hemoglobin Concent 34.1 32-36 g/dl Platelet Count 219 130-400 K/uL Mean Platelet Volume 10.0 7.4-10.4 fL Neutrophils (%) (Auto) 73.7 % Lymphocytes (%) (Auto) 12.8 % Monocytes (%) (Auto) 12.3 % Eosinophils (%) (Auto) 0.5 % Basophils (%) (Auto) 0.4 % Neutrophils # (Auto) 5.84 1.4-6.5 K/uL Lymphocytes # (Auto) 1.01 1.2-3.4 K/uL Monocytes # (Auto) 0.97 0.11-0.59 K/uL Eosinophils # (Auto) 0.04 0-0.5 K/uL Basophils # (Auto) 0.03 0-0.2 K/uL RDW Standard Deviation 47.5 36.4-46.3 fL RDW Coefficient of Variation 14.1 11.5-14.5 % Immature Granulocyte % (Auto) 0.3 % Immature Granulocyte # (Auto) 0.02 0.00-0.02 K/uL Erythrocyte Sedimentation Rate 41 0-14 mm/hr C-Reactive Protein 16.50 0-0.29 mg/dl Microbiology Results 03/28/17 Blood Culture, Received Pending 03/28/17 Blood Culture, Received Pending Diagnostic Radiology R UE XR: 1. No acute fracture or radiographic evidence of osteomyelitis of the right radius or ulna. 2. Punctate metallic density of the distal right forearm, along the lateral dorsal aspect of the distal right radius. This could reflect a tiny foreign body which is not at the site of soft tissue swelling/wound. Impression Assessment and Plan 61 y/o M who was admitted on 03/28 for R UE cellulitis and abscess with failure out outpt management. R UE cellulitis: Failed outpt management Minimal improvement s/p I&D on 03/27 XR neg for osteo, possibly small piece of metal in UE that does not appear directly affiliated with area of abscess Blood cx pending for 03/27 and 03/28 WBC WNL, however ESR and CRP with substantial elevation Dapto given in ED on 03/27, will continue Gen surg c/s pending for possible further interventions ARF: Cr in ED yesterday was 1.8 Baseline appears to be 1.4 Repeat PRP pending Monitor with gentle IVF at 75cc/hr given lasix use DM: stable, continue home meds with SSI PRN A1c pending HTN: Stable, continue on home meds BPH/urinary incontinence: continue home meds CAD: holding aspirin in case of further procedures Other: Full code DM diet Ambulation for DVT proph Level of Care Med/Surg Resuscitation Status FULL RESUSCITATION VTE Prophylaxis VTE Risk Assessment Done? Y/N: Yes Risk Level: Low
[2017-03-28 16:45] VITALS: O2SAT 95; Ht 177.8 cm; Wt 133.9 kg
[2017-03-28 17:28] LABS: BUN/CREATININE RATIO 20.9 (10-20); CALCIUM 8.4 mg/dl (8.5-10.1); CREATININE 1.8 mg/dl (0.60-1.40); POTASSIUM 3.7 mmol/L (3.5-5.1)
[2017-03-28] MEDS ORDERED: DAPTOmycin IV 525 MG in SODIUM CHLORIDE 0.9% 50ML 50 ML IV SCH (20:00)
[2017-03-28 20:31] VITALS: BP 132/84; PULSE 62; TEMP 37; O2SAT 93
[2017-03-28] MEDS: GEMFIBROZIL 600 MG TAB PO SCH (20:36)
[2017-03-28] MEDS: PREGABALIN 75 MG CAP PO SCH (20:36)
[2017-03-28] MEDS: ATORVASTATIN 20 MG TAB PO SCH (20:36)
[2017-03-28] MEDS: PANTOprazole SOD 40 MG TAB PO SCH (20:37)
[2017-03-28] MEDS: FUROSEMIDE 40 MG TAB PO SCH (20:37)
[2017-03-28] MEDS: TAMSULOSIN HCL 0.4 MG CAP PO SCH (20:37)
[2017-03-28] MEDS: SODIUM CHLORIDE 0.9% 1000ML 1,000 ML IV SCH (20:38)
[2017-03-28] MEDS: INSULIN ASPART 100 UNITS/ML 3 ML PEN SC SCH (21:00)
[2017-03-28 23:28] VITALS: BP 118/68; PULSE 63; TEMP 37.1; O2SAT 92
--- NOTE | 2017-03-29 01:09 | SURGICAL CONSULTATION ---
DATE OF ADMISSION: 03/28/2017 CONSULTATION BY: Abbie Junior MD REASON FOR CONSULTATION: Draining right upper extremity abscess site, question of further debridement. SUMMARY: This is a 61-year-old gentleman, who was seen in ER few days ago for some redness in his forearm on the lateral aspect just below the elbow. At that time, he was just given antibiotics and then came into the Emergency Room here where the area was opened and had significant amount of drainage. He was given dose of daptomycin and discontinued with IV access to return today for followup, which he did. On findings the area was still draining and still moderately tender felt that according to the note that was improved and he was admitted. He did have an x-ray of his right upper extremity which showed a metallic object, possibly around his wrist area, not really associated with the ongoing process that is going up his upper extremity. 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 He denies being exposed to any insects and possibly bite. PAST HISTORY: He was seen at wound care years ago for an area of infection in his foot. Past medical history is positive for having had carotid insufficiency complete occlusion with a cerebral infarct, diaphragmatic hernia, diabetes, esophageal stricture, GERD, history of osteomyelitis left great toe status post amputation in 2010, hyperlipidemia, hypertension, neuropathy, COPD, sleep apnea and also a history of right knee joint replacement. FAMILY HISTORY: Pretty much noncontributory. PRESENT MEDICATIONS: Reviewed. REVIEW OF SYSTEMS: Reviewed 1-10. PHYSICAL EXAMINATION: Ck Aggarwal is in no acute distress. He is virtually having no pain in the area unless we touch it. 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 He has a good peripheral pulse and about a +4 radial pulse. The area of cellulitis extends from the lateral forearm fdc up towards the elbow area. It does not seem to be involved with the elbow at all. The cellulitis, according to the patient and induration seems to be even in the distal right upper extremity above the elbow. The exam that I see now is an area that is about 2 cm or so open with surrounding induration, but there is no fluctuance. He does have a wrap on there and appears to have just serosanguineous drainage. At this point, the patient's vitals show a temperature of 37, pulse 62, respirations 18, blood pressure 132/84 and O2 sats 93 on room air. Laboratory-slater, he came in with a white count of 7.91 with no left shift. His sed rate is 41. The x-rays, as stated of the forearm showed just some right soft tissue swelling. I would continue the present therapy antibiotics for MRSA, await the final cultures and may consider doing an ultrasound to see if there is any deep seated abscess that we could not appreciate clinically; to open this up at this point, I would wait to see if the induration and cellulitis improves and continues draining as it has been. I will add a heating pad to that area. We will follow along with you. SHERRIE
[2017-03-29 05:59] LABS: HEMATOCRIT 33.8 % (42-52); MEAN CELL VOLUME 92.1 fL (80-100); MEAN CORPUSCULAR HGB CONC 32.5 g/dl (32-36); MEAN PLATELET VOLUME 9.4 fL (7.4-10.4); PLATELET COUNT 217 K/uL (130-400); RED BLOOD COUNT 3.67 M/uL (4.7-6.1); WHITE BLOOD COUNT 5.37 K/uL (4.8-10.8)
[2017-03-29 06:39] LABS: ESTIMATED AVERAGE GLUCOSE 137 mg/dl; HA1C FLAG Normal (Normal)
[2017-03-29] MEDS: SODIUM CHLORIDE 0.9% 1000ML 1,000 ML IV SCH ×2 (06:41→19:03)
[2017-03-29 06:42] LABS: BUN/CREATININE RATIO 20.6 (10-20); CALCIUM 8.2 mg/dl (8.5-10.1); CREATININE 1.8 mg/dl (0.60-1.40); POTASSIUM 3.8 mmol/L (3.5-5.1)
[2017-03-29 07:13] VITALS: BP 133/64; PULSE 62; TEMP 36.8; O2SAT 92
[2017-03-29] MEDS ORDERED: METFORMIN HCL 500 MG TAB PO SCH (08:00)
[2017-03-29] MEDS: VESICARE - ORDER AWAITING ACTION SCH ×3 (08:00→16:00)
[2017-03-29] MEDS: GEMFIBROZIL 600 MG TAB PO SCH ×2 (09:09→21:02)
[2017-03-29] MEDS: FUROSEMIDE 40 MG TAB PO SCH (09:09)
[2017-03-29] MEDS: CYANOCOBALAMIN 100 MCG TAB (VIT B-12) PO SCH (09:10)
[2017-03-29] MEDS: PANTOprazole SOD 40 MG TAB PO SCH ×2 (09:10→21:01)
[2017-03-29] MEDS: METOPROLOL SUCC 25MG EXT REL TAB PO SCH (09:10)
[2017-03-29] MEDS: ISOSORBIDE MONONITRATE 30 MG TABCR PO SCH (09:11)
[2017-03-29] MEDS: ENALAPRIL MALEATE 5 MG TAB PO SCH (09:11)
[2017-03-29] MEDS: INSULIN ASPART 100 UNITS/ML 3 ML PEN SC SCH ×4 (09:16→21:05)
[2017-03-29] MEDS: PREGABALIN 75 MG CAP PO SCH ×2 (09:16→21:01)
--- NOTE | 2017-03-29 13:53 | Family Medicine Progress Note ---
Progress Note Date of Service March 29, 2017. Subjective Pt evaluation today including: conversation w/ patient, physical exam, chart review, lab review Pain: denies pain PO Intake: good Voiding: no voiding problems 61 -year-old male with past medical history of diabetes , carotid artery occlusion, diabetic retinopathy, GERD, hyperlipidemia, hypertension, history of osteomyelitis status post amputation of great of left leg presented to the ER with complaints of right arm swelling and pain. He was seen in the ER and underwent an I and D and treated with daptomycin. He was advised to return to the ER for follow-up and was admitted as there was no improvement in his wound and he continued to have substantial drainage. X-ray of the forearm was negative for osteomyelitis and he was being treated with daptomycin Denies any pain, fevers or chills, numbness or tingling around the area. Denies any chest pain, shortness of breath, palpitations Constitutional: No chills, No fever Eyes: No worsening of vision ENT: No hearing loss Respiratory: No cough, No sputum Cardiovascular: No chest pain Abdomen: No diarrhea, No nausea, No pain, No vomiting Musculoskeletal: + problem reported (right arm swelling) Male : No dysuria Neurologic: No memory loss Psychiatric: No depression symptoms Heme: No abnormal bleeding/bruising Medications Current Inpatient Medications Medications (Trade) Dose Ordered Sig/John Route Start Time Stop Time Status Last Admin Dose Admin Acetaminophen (Tylenol Tab) 650 mg Q4H PRN PO 03/28/17 16:00 04/27/17 15:59 Magnesium Hydroxide (Milk Of Magnesia Susp) 30 ml Q6H PRN PO 03/28/17 16:00 04/27/17 15:59 Ondansetron HCl (Zofran Inj) 4 mg Q6H PRN IV 03/28/17 16:00 04/27/17 15:59 Insulin Aspart (novoLOG ASPART) SLIDING SCALE If C... ACHS SC 03/28/17 21:00 04/27/17 20:59 03/29/17 12:46 5 UNITS Glucose (Glucose 40% Gel) 15-30 GRAMS 15 GRAMS... UD PRN PO 03/28/17 16:00 04/27/17 15:59 Glucose (Glucose Chew Tab) 4-8 Tablets 4 Tabl... UD PRN PO 03/28/17 16:00 5/30/17 15:59 Dextrose (Dextrose 50% 50ML Syringe) 25-50ML OF 50% DW IV FOR... UD PRN IV 03/28/17 16:00 04/27/17 15:59 Glucagon 1 mg 1 mg UD PRN SQ 03/28/17 16:00 04/27/17 15:59 Daptomycin/Sodium Chloride (Cubicin IV/Nss 50ml) 60.5 ml @ 100 mls/hr DAILY@2000 IV 03/28/17 20:00 04/07/17 19:59 03/28/17 20:37 100 MLS/HR Atorvastatin Calcium (Lipitor Tab) 20 mg HS PO 03/28/17 21:00 04/27/17 20:59 03/28/17 20:36 20 MG Cyanocobalamin (Vitamin B-12 Tab) 100 mcg QAM PO 03/29/17 09:00 04/28/17 08:59 03/29/17 09:10 100 MCG Enalapril Maleate (Vasotec Tab) 2.5 mg DAILY PO 03/29/17 09:00 04/28/17 08:59 03/29/17 09:11 2.5 MG Furosemide (Lasix Tab) 40 mg BID17 PO 03/28/17 21:00 04/27/17 20:59 03/29/17 09:09 40 MG Gemfibrozil (Lopid Tab) 600 mg BID PO 03/28/17 21:00 04/27/17 20:59 03/29/17 09:09 600 MG Isosorbide Mononitrate (Imdur Ext Rel Tab) 30 mg QAM PO 03/29/17 09:00 04/28/17 08:59 03/29/17 09:11 30 MG Metformin HCl (Glucophage Tab) 500 mg BIDM PO 03/29/17 08:00 04/28/17 07:59 03/29/17 09:09 500 MG Metoprolol Succinate (Toprol Xl Tab) 25 mg QAM PO 03/29/17 09:00 04/28/17 08:59 03/29/17 09:10 25 MG Oxycodone/ Acetaminophen (Percocet 5-325mg Tab) 1 tab Q4H PRN PO 03/28/17 16:15 04/11/17 16:14 Pantoprazole Sodium (Protonix Tab) 40 mg BID PO 03/28/17 21:00 04/27/17 20:59 03/29/17 09:10 40 MG Pregabalin (Lyrica Cap) 75 mg BID PO 03/28/17 21:00 04/27/17 20:59 03/29/17 09:16 75 MG Tamsulosin HCl (Flomax Cap) 0.4 mg HS PO 03/28/17 21:00 04/27/17 20:59 03/28/17 20:37 0.4 MG Miscellaneous Information 1 ea 1 ea QS N/A 03/29/17 00:00 04/28/17 00:00 Sodium Chloride (Nss 1000ml) 1,000 ml @ 75 mls/hr [id number] IV 03/28/17 16:30 04/27/17 16:29 03/29/17 06:41 75 MLS/HR Objective Vital Signs Date Time Temp Pulse Resp B/P Pulse Ox O2 Delivery O2 Flow Rate FiO2 03/29/17 07:13 36.8 62 16 133/64 92 Room Air 03/29/17 07:10 Room Air 03/29/17 00:05 Room Air 03/28/17 23:28 37.1 63 14 118/68 92 Room Air 03/28/17 20:31 37.0 62 18 132/84 93 Room Air 03/28/17 18:00 Room Air 03/28/17 17:08 64 125/56 95 Room Air 03/28/17 16:45 95 Room Air 03/28/17 14:48 59 18 114/62 92 Room Air Physical Exam General Appearance: WD/WN, no apparent distress, + obese Eyes: normal inspection ENT: normal ENT inspection, hearing grossly normal Neck: supple Respiratory/Chest: chest non-tender, lungs clear, normal breath sounds, no respiratory distress, no accessory muscle use Cardiovascular: regular rate, rhythm Abdomen: normal bowel sounds, non tender, soft Extremities: + pedal edema (at baseline), + pertinent finding (right arm swelling status post I&D, warm, erythematous , mildly tender to palpation) Neurologic/Psychiatric: alert, normal mood/affect, oriented x 3 Skin: normal color Laboratory Results 03/29/17 05:32 03/29/17 05:32 Test 03/28/17 13:35 03/29/17 05:32 03/29/17 11:51 Immature Granulocyte % (Auto) 0.3 % White Blood Count 7.91 K/uL (4.8-10.8) Red Blood Count 3.89 M/uL (4.7-6.1) 3.67 M/uL (4.7-6.1) Hemoglobin 12.1 g/dL (14.0-18.0) Hematocrit 35.5 % (42-52) Mean Corpuscular Volume 91.3 fL (80-100) 92.1 fL (80-100) Mean Corpuscular Hemoglobin 31.1 pg (25-34) 30.0 pg (25-34) Mean Corpuscular Hemoglobin Concent 34.1 g/dl (32-36) 32.5 g/dl (32-36) Platelet Count 219 K/uL (130-400) Mean Platelet Volume 10.0 fL (7.4-10.4) 9.4 fL (7.4-10.4) Neutrophils (%) (Auto) 73.7 % Lymphocytes (%) (Auto) 12.8 % Monocytes (%) (Auto) 12.3 % Eosinophils (%) (Auto) 0.5 % Basophils (%) (Auto) 0.4 % Neutrophils # (Auto) 5.84 K/uL (1.4-6.5) Lymphocytes # (Auto) 1.01 K/uL (1.2-3.4) Monocytes # (Auto) 0.97 K/uL (0.11-0.59) Eosinophils # (Auto) 0.04 K/uL (0-0.5) Basophils # (Auto) 0.03 K/uL (0-0.2) Immature Granulocyte # (Auto) 0.02 K/uL (0.00-0.02) Erythrocyte Sedimentation Rate 41 mm/hr (0-14) C-Reactive Protein 16.50 mg/dl (0-0.29) RDW Standard Deviation 47.9 fL (36.4-46.3) RDW Coefficient of Variation 14.0 % (11.5-14.5) Anion Gap 9.0 mmol/L (3-11) Est Creatinine Clear Calc Drug Dose 58.6 ml/min Estimated GFR () 45.7 Estimated GFR (Non- 39.5 BUN/Creatinine Ratio 20.6 (10-20) Estimated Average Glucose 137 mg/dl Hemoglobin A1c 6.4 % (4.5-5.6) Calcium Level 8.2 mg/dl (8.5-10.1) Total Creatine Kinase 221 U/L (39-308) Bedside Glucose 118 mg/dl (70-99) Assessment and Plan 61 -year-old male with past medical history of diabetes , carotid artery occlusion, diabetic retinopathy, GERD, hyperlipidemia, hypertension, history of osteomyelitis status post amputation of great of left leg presented to the ER with complaints of right arm swelling and pain. He was seen in the ER and underwent an I& D and treated with daptomycin. He was advised to return to the ER for follow-up and was admitted as there was no improvement in his wound and he continued to have substantial drainage. X-ray forearm was negative for osteomyelitis. Gen. surgery was also consulted Right upper extremity cellulitis status post I&D - Had failed outpatient treatment - I&D done on 03/27 - General surgery consult- appreciate recommendations - wound and blood culture from ED visit growing staph aureus MSSA - Continue daptomycin - dose increased to 6mg/kg - Heating pad on affected area WILLI - Creatinine on admission at 1.8, creatinine today at 1.8 - Baseline 1.4 - monitor creatinine and avoid nephrotoxins Type 2 diabetes - Sliding-scale insulin - Hemoglobin A1c at 6.4 -Hold metformin Hypertension/CAD - Hold enalapril and Lasix due to elevated creatinine - Continue metoprolol and Imdur and atorvastatin - Aspirin held in anticipation of operative procedures Hyperlipidemia: Continue gemfibrozil and atorvastatin Diabetic neuropathy - Continue Lyrica BPH/urinary incontinence: -continue Flomax GERD - Continue Protonix Full code DVT prophylaxis: Encourage ambulation SCDs Disposition: Monitor in [facility] Resident Tracking Resident Involvement: Resident Care Provided Care Provided: Adult Hospital Medicine Reviewed: Pt Seen/Exam by Me History left arm swelling, redness with no worsening. no pain. Constitutional: denies: fever Respiratory: negative: short of breath Cardiovascular: denies chest pain General Appearance: no apparent distress Respiratory: lungs clear, no respiratory distress Cardiovascular: regular rate, rhythm Extremities: other (right forearm - 3cm wound with surrounding erythema and edema extending in most of dorsal forearm) Neurologic/Psychiatric: alert, oriented x 3 Skin Characteristics: warm/dry Assessment/Plan I have reviewed the medical record and performed a history and physical examination of this patient today. I have discussed the case with Dr. Ortiz. The above note reflects my findings, conclusions, and recommendations.
[2017-03-29 14:57] VITALS: BP 122/57; PULSE 62; TEMP 36.7; O2SAT 94
[2017-03-29] MEDS ORDERED: DAPTOmycin IV 800 MG in SODIUM CHLORIDE 0.9% 50ML 50 ML IV SCH (20:00)
[2017-03-29] MEDS: TAMSULOSIN HCL 0.4 MG CAP PO SCH (21:01)
[2017-03-29] MEDS: ATORVASTATIN 20 MG TAB PO SCH (21:02)
[2017-03-29 22:58] VITALS: BP 132/76; PULSE 60; TEMP 37.2; O2SAT 91
[2017-03-30 07:38] VITALS: BP 121/68; PULSE 60; TEMP 36.7; O2SAT 90
[2017-03-30 08:57] LABS: BUN/CREATININE RATIO 18.8 (10-20); CALCIUM 8.7 mg/dl (8.5-10.1); CREATININE 1.2 mg/dl (0.60-1.40)
[2017-03-30] MEDS: ISOSORBIDE MONONITRATE 30 MG TABCR PO SCH (09:11)
[2017-03-30] MEDS: CYANOCOBALAMIN 100 MCG TAB (VIT B-12) PO SCH (09:11)
[2017-03-30] MEDS: VESICARE - ORDER AWAITING ACTION SCH ×3 (09:11→16:00)
[2017-03-30] MEDS: PANTOprazole SOD 40 MG TAB PO SCH ×2 (09:12→21:51)
[2017-03-30] MEDS: GEMFIBROZIL 600 MG TAB PO SCH ×2 (09:12→21:50)
[2017-03-30] MEDS: METOPROLOL SUCC 25MG EXT REL TAB PO SCH (09:12)
[2017-03-30] MEDS: SODIUM CHLORIDE 0.9% 1000ML 1,000 ML IV SCH ×2 (09:14→21:52)
[2017-03-30] MEDS: INSULIN ASPART 100 UNITS/ML 3 ML PEN SC SCH ×4 (09:19→21:00)
[2017-03-30] MEDS: PREGABALIN 75 MG CAP PO SCH ×2 (09:19→21:48)
--- NOTE | 2017-03-30 11:48 | Surgery Progress Note ---
Surgery Progress Note Date of Service March 30, 2017. Subjective + feeling well (improved) Objective Vital Signs: Date Time Temp Pulse Resp B/P Pulse Ox O2 Delivery O2 Flow Rate FiO2 03/30/17 07:54 Room Air 03/30/17 07:38 36.7 60 20 121/68 90 Room Air 03/30/17 00:15 Room Air 03/29/17 22:58 37.2 60 16 132/76 91 Room Air 03/29/17 15:40 Room Air 03/29/17 14:57 36.7 62 18 122/57 94 Room Air Extremities: + pertinent finding (right elbow erythema improved, rmains indurated, some drainage) Laboratory Results: Results Past 24 Hours Test 03/29/17 11:51 03/29/17 16:57 03/29/17 20:15 03/30/17 07:48 Range/Units Bedside Glucose 118 104 149 70-99 mg/dl Sodium Level 139 136-145 mmol/L Potassium Level 4.0 3.5-5.1 mmol/L Chloride Level 104 98-107 mmol/L Carbon Dioxide Level 28 21-32 mmol/L Anion Gap 7.0 3-11 mmol/L Blood Urea Nitrogen 23 7-18 mg/dl Creatinine 1.20 0.60-1.40 mg/dl Est Creatinine Clear Calc Drug Dose 87.9 ml/min Estimated GFR () 74.7 Estimated GFR (Non- 64.4 BUN/Creatinine Ratio 18.8 10-20 Random Glucose 123 70-99 mg/dl Calcium Level 8.7 8.5-10.1 mg/dl Test 03/30/17 07:57 Range/Units Bedside Glucose 118 70-99 mg/dl Assessment & Plan right elbow cellulitis improved debrided by Dr. Cintron at bedside no further procedures planned transition to po abx per medicine
--- NOTE | 2017-03-30 12:10 | SURGERY PROGRESS NOTE ---
DATE: 03/30/2017 SUBJECTIVE: Ck looks much better since last seen approximately 24 hours ago. The cellulitis that he had has resolved about 70% or more. The area is still draining in the lateral aspect of the upper forearm. It seemed to be like a blister formation with slight fluctuance, I opened that up just at the bedside and really did not get much more out of it, there are no other areas that need to be addressed as far as any ultrasound. I think he needs to be continued with the antibiotic therapy and he can be discharged any time the primary service sees fit. I would continue him to wear compresses as I think this helps him evacuate the area. No need to follow up with us unless there are other issues that develop. SHERRIE
[2017-03-30 12:11] VITALS: BP 147/90; PULSE 61; TEMP 36.6; O2SAT 93
--- NOTE | 2017-03-30 15:08 | Progress Note ---
Progress Note Date of Service March 30, 2017. Progress Note ID consult dictated #[id number] A/P: 1.MSSA BSI 2.RUE cellulitis with abscess -change to ctx 2g daily x 21 days -echo -picc line -local wound care -ok for d/c when plan for outpt abx in place -thank you
--- NOTE | 2017-03-30 15:18 | INFECT. DISEASE CONSULTATION ---
DATE OF CONSULTATION: 03/30/2017 DATE OF CONSULTATION: 03/29/2017. REQUESTING PHYSICIAN: Dr. Quintanilla. HISTORY OF PRESENT ILLNESS: This is a 61-year-old gentleman who was admitted on 03/28/2017 for right forearm abscess. He had been seen a week and a half prior to admission and at an urgent care center and was placed on a course of oral Bactrim. He took this for several days, but noticed worsening erythema, redness and pain of his right forearm. He subsequently presented to the Emergency Room on 03/27/2017. Blood cultures were obtained and he was given a dose of IV daptomycin. He was subsequently discharged to home. He continued to have worsening complaints and presented on the . At that time, he was admitted and placed on IV daptomycin. He has been on this since admission. His blood cultures on the are growing MSSA in 2 sets. The first ordered at 12:30, the second at 1330. His repeat blood cultures were obtained on the when he was admitted to the hospital and those were no growth to date. He was evaluated by surgery and initially was to have I\T\D; however, it was decided today that I\T\D was not necessary. He did have an x-ray of the forearm which was unremarkable for foreign body, but did not have any additional imaging obtained. He has denied fevers and chills throughout all of this. He does have continued pain and some drainage from the forearm. This was initially opened in the Emergency Room on the . He was to be discharged home today and it was noted that his blood cultures were positive on the and infectious diseases was consulted for further input. The patient denies any history of heart disease; however, he does have bilateral knee replacements. He continues to have pain in the arm but overall this is improving. He has not had a leukocytosis. His sed rate is mildly elevated at 41. He is tolerating antibiotics well. All remaining review of systems are reviewed and are unremarkable. PAST MEDICAL HISTORY: Significant for carotid artery occlusion, diabetes type 2 with retinopathy, esophageal stricture, GERD, compression fractures, history of osteomyelitis, hyperlipidemia, hypertension, diabetic neuropathy, obstructive sleep apnea, osteoarthritis. PAST SURGICAL HISTORY: Significant for toe amputations, bilateral knee replacements and ear surgery. FAMILY HISTORY: Noncontributory. SOCIAL HISTORY: Negative for drug use, alcohol use or tobacco use. He lives alone. ALLERGIES: HE HAS ALLERGIES TO DYE. CURRENT MEDICATIONS: Include daptomycin, vitamin B12, Imdur, Topral XL, NovoLog, Lipitor, gemfibrozil, Protonix, Lyrica, Flomax, Percocet, Tylenol, milk of magnesia, Zofran. PHYSICAL EXAMINATION: VITAL SIGNS: He has been afebrile, pulse 61, respiratory rate 20, blood pressure 147/90, oxygen saturation is 93% on room air. GENERAL: He is awake, alert and oriented x3. She is in no acute distress. HEAD, EYES, EARS, NOSE, AND THROAT: Mucous membranes are moist. Extraocular muscles are intact. HEART: Regular without murmur. LUNGS: Clear bilaterally. ABDOMEN: Soft, nontender, nondistended. There is no edema in the bilateral lower extremities. Examination of the right forearm does reveal abscess to be present on the forearm. There is some purulent drainage with palpation. There is significant induration, erythema and tight skin. LABORATORY STUDIES: CBC yesterday reveals a white blood cell count of 5.3, hemoglobin 11, platelets are 217. Sed rate was 41. Chemistry panel today reveals a sodium of 139, potassium 4.0, chloride 104, bicarbonate 28, BUN is 23, creatinine 1.2, glucose is 121. CPK on admission was 221. CRP was 16.5. Again, blood cultures from the are growing MSSA in 2/2 sets. Blood cultures on the are no growth. No wound culture was obtained. X-ray of the forearm from the does not show any osteomyelitis. ASSESSMENT AND PLAN: 1. Staph aureus septicemia. 2. Right forearm abscess with cellulitis. At this time, he will be transitioned to IV Rocephin. A PICC line will be placed and consent is on the chart. An echocardiogram should be done to rule out endocarditis. I believe he would need a minimum of 3 weeks of IV antibiotic therapy as he does have significant abscess. There is no plan for surgical debridement at this time. He can be discharged home once a plan for outpatient antibiotics are in place. This was explained to the patient. All questions were answered. Thank you for this consultation.
[2017-03-30 17:20] VITALS: O2SAT 93
[2017-03-30] MEDS: CEFTRIAXONE SOD INJ 2,000 MG in DEXTROSE 5% 50ML 50 ML IV SCH (17:21)
[2017-03-30 17:48] VITALS: BP 153/87; PULSE 90; TEMP 36.9; O2SAT 93
--- NOTE | 2017-03-30 18:07 | Family Medicine Progress Note ---
Progress Note Date of Service March 30, 2017. Subjective Pt evaluation today including: conversation w/ patient, physical exam, chart review, lab review Pain: denies pain PO Intake: good Voiding: no voiding problems 61 -year-old male with past medical history of diabetes , carotid artery occlusion, diabetic retinopathy, GERD, hyperlipidemia, hypertension, history of osteomyelitis status post amputation of great of left leg presented to the ER with complaints of right arm swelling and pain. He was seen in the ER and underwent an I and D and treated with daptomycin. He was advised to return to the ER for follow-up and was admitted as there was no improvement in his wound and he continued to have substantial drainage. X-ray of the forearm was negative for osteomyelitis and he was being treated with daptomycin No acute events overnight. Denies fever/chills, pain, chest pain, difficulty breathing, palpitations Constitutional: No chills, No fever Eyes: No worsening of vision ENT: No hearing loss Respiratory: No cough Cardiovascular: No chest pain Abdomen: No pain Musculoskeletal: No joint pain Male : No dysuria Neurologic: No memory loss, No paralysis Endo: No fatigue Medications Current Inpatient Medications Medications (Trade) Dose Ordered Sig/John Route Start Time Stop Time Status Last Admin Dose Admin Acetaminophen (Tylenol Tab) 650 mg Q4H PRN PO 03/28/17 16:00 04/27/17 15:59 Magnesium Hydroxide (Milk Of Magnesia Susp) 30 ml Q6H PRN PO 03/28/17 16:00 04/27/17 15:59 Ondansetron HCl (Zofran Inj) 4 mg Q6H PRN IV 03/28/17 16:00 04/27/17 15:59 Insulin Aspart (novoLOG ASPART) SLIDING SCALE If C... ACHS SC 03/28/17 21:00 04/27/17 20:59 03/30/17 12:37 3 UNITS Glucose (Glucose 40% Gel) 15-30 GRAMS 15 GRAMS... UD PRN PO 03/28/17 16:00 04/27/17 15:59 Glucose (Glucose Chew Tab) 4-8 Tablets 4 Tabl... UD PRN PO 03/28/17 16:00 04/27/17 15:59 Dextrose (Dextrose 50% 50ML Syringe) 25-50ML OF 50% DW IV FOR... UD PRN IV 03/28/17 16:00 04/27/17 15:59 Glucagon (Glucagon Inj) 1 mg UD PRN SQ 03/28/17 16:00 04/27/17 15:59 Atorvastatin Calcium (Lipitor Tab) 20 mg HS PO 03/28/17 21:00 04/27/17 20:59 03/29/17 21:02 20 MG Cyanocobalamin (Vitamin B-12 Tab) 100 mcg QAM PO 03/29/17 09:00 04/28/17 08:59 03/30/17 09:11 100 MCG Enalapril Maleate (Vasotec Tab) 2.5 mg DAILY PO 03/29/17 09:00 04/28/17 08:59 Future Hold 03/29/17 09:11 2.5 MG Furosemide (Lasix Tab) 40 mg BID17 PO 03/28/17 21:00 04/27/17 20:59 Future Hold 03/29/17 09:09 40 MG Gemfibrozil (Lopid Tab) 600 mg BID PO 03/28/17 21:00 04/27/17 20:59 03/30/17 09:12 600 MG Isosorbide Mononitrate (Imdur Ext Rel Tab) 30 mg QAM PO 03/29/17 09:00 04/28/17 08:59 03/30/17 09:11 30 MG Metformin HCl (Glucophage Tab) 500 mg BIDM PO 03/29/17 08:00 04/28/17 07:59 Future Hold 03/29/17 09:09 500 MG Metoprolol Succinate (Toprol Xl Tab) 25 mg QAM PO 03/29/17 09:00 04/28/17 08:59 03/30/17 09:12 25 MG Oxycodone/ Acetaminophen (Percocet 5-325mg Tab) 1 tab Q4H PRN PO 03/28/17 16:15 04/11/17 16:14 Pantoprazole Sodium (Protonix Tab) 40 mg BID PO 03/28/17 21:00 04/27/17 20:59 03/30/17 09:12 40 MG Pregabalin (Lyrica Cap) 75 mg BID PO 03/28/17 21:00 04/27/17 20:59 03/30/17 09:19 75 MG Tamsulosin HCl (Flomax Cap) 0.4 mg HS PO 03/28/17 21:00 04/27/17 20:59 03/29/17 21:01 0.4 MG Miscellaneous Information 1 ea 1 ea QS N/A 03/29/17 00:00 04/28/17 00:00 Sodium Chloride 1,000 ml @ 75 mls/hr [id number] IV 03/28/17 16:30 04/27/17 16:29 03/30/17 09:14 75 MLS/HR Ceftriaxone Sodium/Dextrose (Rocephin Inj/D5 50ml) 70 ml @ 100 mls/hr DAILY@1500 IV 03/30/17 15:45 04/13/17 15:44 03/30/17 17:21 100 MLS/HR Objective Vital Signs Date Time Temp Pulse Resp B/P Pulse Ox O2 Delivery O2 Flow Rate FiO2 03/30/17 17:48 36.9 90 18 153/87 93 Room Air 03/30/17 17:20 93 Room Air 03/30/17 12:11 36.6 61 20 147/90 93 Room Air 03/30/17 07:54 Room Air 03/30/17 07:38 36.7 60 20 121/68 90 Room Air 03/30/17 00:15 Room Air 03/29/17 22:58 37.2 60 16 132/76 91 Room Air Physical Exam General Appearance: WD/WN, no apparent distress, + obese Eyes: normal inspection ENT: normal ENT inspection Neck: supple Respiratory/Chest: chest non-tender, lungs clear, normal breath sounds, no respiratory distress, no accessory muscle use Cardiovascular: regular rate, rhythm, no edema Abdomen: normal bowel sounds, non tender, soft Extremities: + pertinent finding (right forearm swelling indurated, warm , mildly tender . Erythema improved) Neurologic/Psychiatric: alert, normal mood/affect, oriented x 3 Laboratory Results 03/30/17 07:48 Test 03/30/17 07:48 03/30/17 17:04 Anion Gap 7.0 mmol/L (3-11) Est Creatinine Clear Calc Drug Dose 87.9 ml/min Estimated GFR () 74.7 Estimated GFR (Non- 64.4 BUN/Creatinine Ratio 18.8 (10-20) Calcium Level 8.7 mg/dl (8.5-10.1) Bedside Glucose 100 mg/dl (70-99) Assessment and Plan 61 -year-old male with past medical history of diabetes , carotid artery occlusion, diabetic retinopathy, GERD, hyperlipidemia, hypertension, history of osteomyelitis status post amputation of great of left leg presented to the ER with complaints of right arm swelling and pain. He was seen in the ER and underwent an I& D and treated with daptomycin. He was advised to return to the ER for follow-up and was admitted as there was no improvement in his wound and he continued to have substantial drainage. X-ray forearm was negative for osteomyelitis. Underwent bedside debridement by general surgery today who recommended medical management Right upper extremity cellulitis status post I&D - Had failed outpatient treatment - I&D done on 03/27 - General surgery consult- appreciate recommendations - wound and blood culture from ED visit growing staph aureus MSSA - Infectious diseases consult- daptomycin changed to ceftriaxone 2 g IV daily. Will need a total of 3 weeks of therapy - Echo ordered - PICC line to be placed today WILLI resolved- - Creatinine on admission at 1.8, creatinine today at 1.2 Type 2 diabetes - Sliding-scale insulin - Hemoglobin A1c at 6.4 -Hold metformin Hypertension/CAD - Hold enalapril and Lasix restarted - Continue metoprolol and Imdur and atorvastatin - Aspirin restarted Hyperlipidemia: Continue gemfibrozil and atorvastatin Diabetic neuropathy - Continue Lyrica BPH/urinary incontinence: -continue Flomax GERD - Continue Protonix Full code DVT prophylaxis: Encourage ambulation SCDs Disposition: Monitor in [facility], PICC line Continued [facility] stay due to: multiple IV medications needed Discharge planning: home Resident Tracking Resident Involvement: Resident Care Provided Care Provided: Adult Hospital Medicine Reviewed: Pt Seen/Exam by Me History no concerns Constitutional: denies: fever Respiratory: negative: short of breath Cardiovascular: denies chest pain General Appearance: no apparent distress Respiratory: no respiratory distress Extremities: other (right UE - wound and surrounding with less erythema and swelling) Neurologic/Psychiatric: alert, oriented x 3 Assessment/Plan I have reviewed the medical record and performed a history and physical examination of this patient today. I have discussed the case with Dr. Ortiz. The above note reflects my findings, conclusions, and recommendations.
[2017-03-30] MEDS ORDERED: ASPIRIN 81 MG ECTAB PO SCH (21:00)
[2017-03-30] MEDS: ATORVASTATIN 20 MG TAB PO SCH (21:50)
[2017-03-30] MEDS: TAMSULOSIN HCL 0.4 MG CAP PO SCH (21:50)
[2017-03-30 22:46] VITALS: BP 133/74; PULSE 60; TEMP 37.1; O2SAT 94
--- NOTE | 2017-03-31 07:07 | SURGERY PROGRESS NOTE ---
DATE: 03/31/2017 Ck continues to do well. The area in the lateral aspect of the upper forearm is much less. It is still significant induration, but the cellulitis seems to be decreasing. He still has drainage. There is no fluctuant area. The plan is to send the patient home with a PICC line according to the patient and infectious disease. There is no need for us to see him in followup unless new problems develop.
[2017-03-31 07:24] VITALS: BP 120/68; PULSE 60; TEMP 36.7; O2SAT 93
[2017-03-31] MEDS: VESICARE - ORDER AWAITING ACTION SCH ×3 (08:00→14:49)
[2017-03-31 08:33] LABS: HEMATOCRIT 36.5 % (42-52); MEAN CELL VOLUME 92.6 fL (80-100); MEAN CORPUSCULAR HEMOGLOBIN 31.2 pg (25-34); MEAN CORPUSCULAR HGB CONC 33.7 g/dl (32-36); MEAN PLATELET VOLUME 9.2 fL (7.4-10.4); PLATELET COUNT 246 K/uL (130-400); RED BLOOD COUNT 3.94 M/uL (4.7-6.1); WHITE BLOOD COUNT 6.13 K/uL (4.8-10.8)
[2017-03-31] MEDS: ISOSORBIDE MONONITRATE 30 MG TABCR PO SCH (08:40)
[2017-03-31] MEDS: CYANOCOBALAMIN 100 MCG TAB (VIT B-12) PO SCH (08:40)
[2017-03-31] MEDS: METOPROLOL SUCC 25MG EXT REL TAB PO SCH (08:40)
[2017-03-31] MEDS: GEMFIBROZIL 600 MG TAB PO SCH (08:40)
[2017-03-31] MEDS: FUROSEMIDE 40 MG TAB PO SCH ×2 (08:41→16:23)
[2017-03-31] MEDS: PANTOprazole SOD 40 MG TAB PO SCH (08:41)
[2017-03-31] MEDS: INSULIN ASPART 100 UNITS/ML 3 ML PEN SC SCH ×3 (08:47→16:40)
[2017-03-31] MEDS: PREGABALIN 75 MG CAP PO SCH (08:49)
[2017-03-31 08:59] LABS: BUN/CREATININE RATIO 15.8 (10-20); CREATININE 0.95 mg/dl (0.60-1.40); POTASSIUM 4.1 mmol/L (3.5-5.1)
[2017-03-31] MEDS: ENALAPRIL MALEATE 5 MG TAB PO SCH (09:05)
[2017-03-31 09:28] LABS: CALCIUM 8.7 mg/dl (8.5-10.1)
[2017-03-31] MEDS: SODIUM CHLORIDE 0.9% 1000ML 1,000 ML IV SCH (10:10)
--- NOTE | 2017-03-31 11:30 | DIAGNOSTIC IMAGING REPORT ---
CHEST ONE VIEW PORTABLE CLINICAL HISTORY: PICC placement. COMPARISON STUDY: Chest radiograph July 29, 2016. FINDINGS: The tip of the left PICC is not well visualized on this exam and is obscured by overlying pacer leads. The tip is at least within the left brachiocephalic vein. Cardiomegaly is unchanged. There is no evidence of pulmonary edema. No pneumothorax or pleural effusion is present. IMPRESSION: Left PICC tip obscured by pacer leads with suboptimal penetration on this exam. A repeat chest radiograph with increased technique is recommended. Electronically signed by: Kris Johnson M.D. 03/31/2017 11:29 AM Dictated Date/Time: 03/31/2017 11:27 AM
--- NOTE | 2017-03-31 12:33 | DIAGNOSTIC IMAGING REPORT ---
CHEST ONE VIEW PORTABLE CLINICAL HISTORY: Chest x-ray for PICC catheter placement COMPARISON STUDY: 03/31/2017 FINDINGS: The study is limited from a technical standpoint due to the patient's large body habitus and motion artifact. The heart is the upper limits of normal in size. There is mild central vascular prominence without evidence of overt failure. The tip of the left PICC catheter is not visualized on this study. It may be necessary to bring the patient to the department for nonportable radiography. There is a left subclavian dual-chamber central venous pacemaker. There is no lobar consolidation.[ IMPRESSION: The tip of the patient's left-sided PICC catheter cannot be visualized with certainty on this portable examination.. Electronically signed by: Adi Lopez M.D. 03/31/2017 12:31 PM Dictated Date/Time: 03/31/2017 12:28 PM
--- NOTE | 2017-03-31 13:48 | DIAGNOSTIC IMAGING REPORT ---
PA CHEST RADIOGRAPHS CLINICAL HISTORY: PICC placement. COMPARISON STUDY: Chest radiograph March 31, 2017 at 12:25 PM. FINDINGS: The left PICC is better visualized on these images. The catheter tip projects over the cavoatrial junction. A dual lead left subclavian pacemaker is in place. There is no pneumothorax or pleural effusion. IMPRESSION: Left PICC tip projects over the cavoatrial junction. Electronically signed by: Kris Johnson M.D. 03/31/2017 1:47 PM Dictated Date/Time: 03/31/2017 1:44 PM
[2017-03-31] MEDS: CEFTRIAXONE SOD INJ 2,000 MG in DEXTROSE 5% 50ML 50 ML IV SCH (14:25)
[2017-03-31 15:06] VITALS: BP 164/84; PULSE 73; TEMP 36.5; O2SAT 93
--- NOTE | 2017-03-31 15:09 | Discharge Instructions ---
Discharge Instructions Date of Service March 31, 2017. Admission Reason for Admission: Cellulitis Of Right Forearm Discharge Discharge Diagnosis / Problem: cellulitis of right forearm Discharge Goals Goal(s): Decrease discomfort, Increase independence Activity Recommendations Activity Limitations: resume your previous activity . Instructions / Follow-Up Instructions / Follow-Up You were admitted with cellulitis of your right arm. You had undergone an incision and drainage of the swelling in the ER prior to admission which had grown staph aureus bacteria in the blood. You were treated with antibiotics. Repeat blood cultures did not grow any more bacteria. General surgery had seen you and did not recommend any more surgical management and recommended antibiotic treatment. Infectious disease specialist recommended treatment with IV antibiotics for a total of 3 weeks. Arrangements have been made for home health to administer antibiotic daily via PICC line. Type 2 diabetes Continue metformin High blood pressure -Continue enalapril and losartan Hyperlipidemia: Continue gemfibrozil and atorvastatin Diabetic neuropathy - Continue Lyrica BPH/urinary incontinence: -continue Flomax GERD - Continue Protonix Please follow-up with your family doctor in about a week Current Hospital Diet Patient's current hospital diet: Diabetes Type 2 Diet Discharge Diet Recommended Diet: Diabetes Type 2 Diet Pending Studies Studies pending at discharge: no Laboratory Results Hemoglobin A1c Test 03/29/17 05:32 Range/Units Estimated Average Glucose 137 mg/dl Hemoglobin A1c 6.4 H 4.5-5.6 % Medical Emergencies . Who to Call and When: Medical Emergencies: If at any time you feel your situation is an emergency, please call 911 immediately. . Non-Emergent Contact Non-Emergency issues call your: Primary Care Provider . . "Provider Documentation" section prepared by Shayla Ortiz. . Head Pastry Chef Recommendations Head Pastry Chef Recommendations: IV antibiotics for 21 days VTE Core Measure Inpt VTE Proph given/why not?: SCD's
--- NOTE | 2017-03-31 15:10 | Discharge Summary ---
Discharge Summary Date of Service March 31, 2017. (Shayla Ortiz MD) Discharge Summary Admission Date: Mar 28, 2017 at 16:10 Discharge Date: March 31, 2017 Discharge Disposition: Home with services Principal Diagnosis: cellulitis of right forearm Immunizations: Have You Had Influenza Vaccine: N/A History of Tetanus Vaccine?: Yes History of Pneumococcal: Yes History of Hepatitis B Vaccine: No Consultations: General surgery, infectious disease (Shayla Ortiz MD) Medication Reconciliation Continued Medications: Aspirin (Aspirin Ec) 81 Mg Tab 81 MG PO QPM Atorvastatin (Lipitor) 20 Mg Tab 20 MG PO HS Cyanocobalamin (Vitamin B-12) 100 Mcg Tab 1 TAB PO QAM Enalapril Maleate (Vasotec) 2.5 Mg Tab 2.5 MG PO DAILY, TAB Ergocalciferol (Vitamin D 82197 Unit) 50,000 Unit Cap 05470 UNIT PO WK Furosemide (Lasix) 40 Mg Tab 40 MG PO BID Gemfibrozil (Lopid) 600 Mg Tab 600 MG PO BID, TAB Isosorbide Mononitrate Ext Rel (Imdur Ext Rel) 30 Mg Tabcr 1 TAB PO QAM Metformin Hcl (Glucophage) 500 Mg Tab 500 MG PO BID, TAB Metoprolol Succ (Toprol Xl) (Toprol-Xl) 25 Mg Tabcr 25 MG PO QAM Oxycodone/Acetaminophen 5MG/325MG (Percocet 5MG/325MG) Tab 1-2 TABLETS PO Q4H PRN for Pain Pantoprazole (Protonix) 40 Mg Tab 40 MG PO BID Pregabalin (Lyrica) 75 Mg Cap 75 MG PO BID Solifenacin (Vesicare) 10 Mg Tab 10 MG PO QAM Tamsulosin Hcl (Flomax) 0.4 Mg Cap 0.4 MG PO HS, CAP Discharge Exam Doing better today. Denies any fevers or chills, pain. Continues to have some discharge from the site. Review of Systems: Constitutional: No chills, No fever Eyes: No worsening of vision ENT: No hearing loss Respiratory: No cough, No sputum Cardiovascular: No chest pain Abdomen: No nausea, No pain Musculoskeletal: No joint pain Genitourinary - Male: No hematuria Neurologic: No memory loss, No paralysis Psychiatric: No depression symptoms Endocrine: No fatigue Hematologic / Lymphatic: No abnormal bleeding/bruising Physical Exam: General Appearance: WD/WN, no apparent distress Eyes: normal inspection ENT: normal ENT inspection, hearing grossly normal Neck: supple Respiratory/Chest: chest non-tender, lungs clear, normal breath sounds Cardiovascular: regular rate, rhythm Abdomen / GI: normal bowel sounds, non tender, soft Extremities: + pedal edema (at baseline), + pertinent finding (right forearm indurated. Tenderness and redness improved. Serosanguineous discharge) Neurologic/Psychiatric: alert, normal mood/affect, oriented x 3 (Shayla Ortiz MD) Review of Systems: Constitutional: No fever Respiratory: No shortness of breath Cardiovascular: No chest pain Physical Exam: General Appearance: no apparent distress Respiratory/Chest: no respiratory distress Cardiovascular: regular rate, rhythm Extremities: + pertinent finding (left arm erythema and swelling improving. would looking better) Neurologic/Psychiatric: alert, oriented x 3 (Molly Quintanilla M.D.) Hospital Course 61 -year-old male with past medical history of diabetes , carotid artery occlusion, diabetic retinopathy, GERD, hyperlipidemia, hypertension, history of osteomyelitis status post amputation of great of left leg presented to the ER with complaints of right arm swelling and pain. He was seen in the ER and underwent an I& D and treated with daptomycin. He was advised to return to the ER for follow-up and was admitted as there was no improvement in his wound and he continued to have substantial drainage. X-ray forearm was negative for osteomyelitis. Underwent bedside debridement by general surgery who recommended medical management. Right upper extremity cellulitis status post I&D - Had failed outpatient treatment - I&D done on 03/27 - wound and blood culture from ED visit growing staph aureus MSSA, repeat blood cultures negative. - General surgery was consulted for potential I&D, had bedside debridement and recommended medical management - Infectious diseases consult- daptomycin changed to ceftriaxone 2 g IV daily. Will need a total of 3 weeks of therapy - PICC line placed and discharged with home health services for IV antibiotics Type 2 diabetes -Continue metformin Hypertension/CAD - enalapril and Lasix were initially held due to concerns of elevated creatinine but were restarted once it normalized - Continue metoprolol ,Imdur and atorvastatin, aspirin Hyperlipidemia: Continue gemfibrozil and atorvastatin Diabetic neuropathy - Continue Lyrica BPH/urinary incontinence: -continue Flomax GERD - Continue Protonix Recommended to follow-up with PCP in one week Total Time Spent: Less than 30 minutes This includes examination of the patient, discharge planning, medication reconciliation, and communication with other providers. (Shayla Ortiz MD) I have reviewed the medical record and performed a history and physical examination of this patient today. I have discussed the case with Dr Ortiz. The above note reflects my findings, conclusions, and recommendations. Total Time Spent: Greater than 30 minutes (35) (Molly Quintanilla M.D.) Discharge Instructions Please refer to the electronic Patient Visit Report (Discharge Instructions) for additional information. (Shayla Ortiz MD) Follow-Up Follow-up with PCP in one week (Shayla Ortiz MD) Additional Copies To Jennifer Phelps M.D. Resident Tracking Resident Involvement: Resident Care Provided Care Provided: Adult Hospital Medicine (Shayla Ortiz MD)
[2017-03-31 15:39] VITALS: BP 164/84; PULSE 73; TEMP 36.5; O2SAT 93
== END 2017-03-31 18:19 | disposition home health service (06) | DRG 603 ==
LOC: ENRESERVDT → ENRESERVTM → C.EDB 12:50 → UNDOADMIN 16:10 → C.MSW 16:10 → EDBEDREQ 17:03
PROVIDERS: ADMIT Family Medicine; ATTEND Family Medicine
PROC: 05HF33Z Insertion of Infusion Device into Left Cephalic Vein, Percutaneous Approach (ICD-10-PCS; principal; 2017-03-31)
DX: L03.113 Cellulitis of right upper limb (principal); N17.9 Acute kidney failure, unspecified; B95.61 Methicillin susceptible Staphylococcus aureus infection as the cause of diseases classified elsewhere; I10 Essential (primary) hypertension; I25.10 Atherosclerotic heart disease of native coronary artery without angina pectoris; E08.40 Diabetes mellitus due to underlying condition with diabetic neuropathy, unspecified; N40.1 Benign prostatic hyperplasia with lower urinary tract symptoms; N39.498 Other specified urinary incontinence; Z79.82 Long term (current) use of aspirin; K21.9 Gastro-esophageal reflux disease without esophagitis; Z83.3 Family history of diabetes mellitus; Z82.49 Family history of ischemic heart disease and other diseases of the circulatory system; E11.319 Type 2 diabetes mellitus with unspecified diabetic retinopathy without macular edema; E78.5 Hyperlipidemia, unspecified; L02.413 Cutaneous abscess of right upper limb; N28.9 Disorder of kidney and ureter, unspecified; E11.42 Type 2 diabetes mellitus with diabetic polyneuropathy; M19.90 Unspecified osteoarthritis, unspecified site; Z89.439 Acquired absence of unspecified foot; Z89.412 Acquired absence of left great toe; Z98.890 Other specified postprocedural states; Z96.651 Presence of right artificial knee joint; Z79.84 Long term (current) use of oral hypoglycemic drugs; Z79.899 Other long term (current) drug therapy

== ENCOUNTER → 2017-05-19 | Day surgery (SDC) | payer OTHER ==
[2017-05-06 13:47] VITALS: BMI 42.0
[~2017-05-19] VITALS: Ht 177.8 cm; Wt 131.8 kg
[~2017-05-19] MED LIST changes: +MIDAZOLAM HCL 1 MG/ML 2ML VIAL ONE; +PROPOFOL IV EMULSION 10 MG/ML 20 ML VIAL IV ONE; +SODIUM CHLORIDE 0.9% 500ML 500 ML IV ONE
[2017-05-19 08:35] VITALS: Ht 177.8 cm; Wt 131.8 kg
--- NOTE | 2017-05-19 09:02 | Endo History and Physical ---
History & Physical Date of Service: May 19, 2017. Chief Complaint: SCREENING #2 POOR PREP FIRST Referring Physician: DR. ROBLES History of Present Illness 61 yo CM who presents for screening colonoscopy. Past Medical History Hypertension, Kidney Disease Past Surgical History Hx Cardiac Surgery: Yes (HEART CATH, NO STENT; PACEMAKER ) Hx Internal Defibrillator: No Hx Pacemaker: No Hx Abdominal Surgery: No Hx of Implantable Prosthesis: No Hx Post-Op Nausea and Vomiting: No Hx Cancer Surgery: No Hx Thoracic Surgery: No Hx Orthopedic: Yes (L/R TKA, LT GREAT TOE AMPUTATION) Hx Urinary Tract Surgery: No Family History None Social History Smoking Status: Never Smoker Hx Substance Use: No Hx Alcohol Use: No Allergies Coded Allergies: Adhesives (Verified Allergy, Unknown, RASH, 05/19/17) Blue Dyes (Parenteral) (Verified Allergy, Unknown, UNKNOWN RX, 05/19/17) CI Pigment Blue 63 (Verified Adverse Reaction, Mild, CHEST PAIN, WEIGHT LOSS, 05/19/17) Duloxetine (Verified Adverse Reaction, Mild, CHEST PAIN, WEIGHT LOSS, 05/19) Current Medications Reported Home Medications Medications Dose Route/Sig Max Daily Dose Days Date Category Vasotec (Enalapril Maleate) 2.5 Mg Tab 2.5 Mg PO QAM 01/19/17 Reported Toprol-Xl (Metoprolol Succinate) 25 Mg Tabcr 25 Mg PO QAM 01/11/17 Reported Imdur Ext Rel (Isosorbide Mononitrate) 30 Mg Tabcr 1 Tab PO QAM 01/11/17 Reported Vitamin D 16425 Unit (Ergocalciferol) 50,000 Unit Cap 50,000 Unit PO WK 01/11/17 Reported Protonix (Pantoprazole Sodium) 40 Mg Tab 40 Mg PO BID 01/11/17 Reported Lyrica (Pregabalin) 75 Mg Cap 75 Mg PO BID 01/11/17 Reported Lasix (Furosemide) 40 Mg Tab 40 Mg PO BID 01/11/17 Reported Vesicare (Solifenacin) 10 Mg Tab 10 Mg PO QAM 07/27/16 Reported Vitamin B-12 (Cyanocobalamin) 100 Mcg Tab 1 Tab PO QAM 07/27/16 Reported Glucophage (Metformin Hcl) 500 Mg Tab 500 Mg PO BID 07/27/16 Reported Lipitor (Atorvastatin Calcium) 20 Mg Tab 20 Mg PO HS 01/22/15 Reported Percocet 5MG/325MG (Oxycodone/Acetaminophen) Tab 1-2 Tablets PO Q4H PRN 12/25/14 Reported Flomax (Tamsulosin Hcl) 0.4 Mg Cap 0.4 Mg PO HS 09/21/14 Reported Lopid (Gemfibrozil) 600 Mg Tab 600 Mg PO BID 04/25/13 Reported Aspirin Ec (Aspirin) 81 Mg Tab 81 Mg PO QPM 04/25/13 Reported Vital Signs Weight (Kilograms): 131.82 Height (Feet): 5 Height (Inches): 10 Date Time Temp Pulse Resp B/P (MAP) Pulse Ox O2 Delivery O2 Flow Rate FiO2 05/19/17 08:43 36.0 81 20 130/84 (99) 94 Room Air Physical Exam General Appearance: WD/WN, no apparent distress Respiratory/Chest: Auscultation: breath sounds normal Cardiovascular: Heart Auscultation: RRR Abdomen: Bowel Sounds: normal Inspection & Palpation: soft, non-distended, no tenderness, guarding & rebound Assessment and Plan Assessment: 61 yo CM who presents for screening colonoscopy. Plan: Proceed with colonoscopy.
--- NOTE | 2017-05-19 09:30 | Discharge Instructions ---
Endoscopy Patient Instructions Date / Procedure(s) Performed May 19, 2017. Colonoscopy Allergy Information Coded Allergies: Adhesives (Verified Allergy, Unknown, RASH, 05/19/17) Blue Dyes (Parenteral) (Verified Allergy, Unknown, UNKNOWN RX, 05/19/17) CI Pigment Blue 63 (Verified Adverse Reaction, Mild, CHEST PAIN, WEIGHT LOSS, 05/19/17) Duloxetine (Verified Adverse Reaction, Mild, CHEST PAIN, WEIGHT LOSS, 05/19) Discharge Date / Findings May 19, 2017. Colon polyps Internal hemorrhoids Medication Instructions Stopped Medication(s): LASIX OK to resume all medications today as prescribed Medications Dose Route/Sig Max Daily Dose Days Date Category Vasotec (Enalapril Maleate) 2.5 Mg Tab 2.5 Mg PO QAM 01/19/17 Reported Toprol-Xl (Metoprolol Succinate) 25 Mg Tabcr 25 Mg PO QAM 01/11/17 Reported Imdur Ext Rel (Isosorbide Mononitrate) 30 Mg Tabcr 1 Tab PO QAM 01/11/17 Reported Vitamin D 22489 Unit (Ergocalciferol) 50,000 Unit Cap 50,000 Unit PO WK 01/11/17 Reported Protonix (Pantoprazole Sodium) 40 Mg Tab 40 Mg PO BID 01/11/17 Reported Lyrica (Pregabalin) 75 Mg Cap 75 Mg PO BID 01/11/17 Reported Lasix (Furosemide) 40 Mg Tab 40 Mg PO BID 01/11/17 Reported Vesicare (Solifenacin) 10 Mg Tab 10 Mg PO QAM 07/27/16 Reported Vitamin B-12 (Cyanocobalamin) 100 Mcg Tab 1 Tab PO QAM 07/27/16 Reported Glucophage (Metformin Hcl) 500 Mg Tab 500 Mg PO BID 07/27/16 Reported Lipitor (Atorvastatin Calcium) 20 Mg Tab 20 Mg PO HS 01/22/15 Reported Percocet 5MG/325MG (Oxycodone/Acetaminophen) Tab 1-2 Tablets PO Q4H PRN 12/25/14 Reported Flomax (Tamsulosin Hcl) 0.4 Mg Cap 0.4 Mg PO HS 09/21/14 Reported Lopid (Gemfibrozil) 600 Mg Tab 600 Mg PO BID 04/25/13 Reported Aspirin Ec (Aspirin) 81 Mg Tab 81 Mg PO QPM 5/28/13 Reported Provider Instructions Activity Restrictions - No exercising or heavy lifting for 24 hours. - Do not drink alcohol the day of the procedure. - Do not drive a car or operate machinery until the day after the procedure. - Do not make any important decisions or sign important papers in 24 hours after the procedure. Following Day: - Return to full activity which may include returning to work/school. Diet Start your diet with liquids and light foods (jello, soup, juice, toast). Then eat your usual diet if not nauseated. Treatment For Common After Affects For mild abdominal pain, bloating, or excessive gas: - Rest - Eat lightly - Lie on right side Follow-Up Information Follow-up with DR. ROBLES as scheduled Anesthesia Information What You Should Know You have had a procedure that required some medicine to reduce anxiety and discomfort. This treatment is called moderate sedation. After receiving the treatment, you may be sleepy, but you will be able to breathe on your own. The effects of the treatment may last for several hours. Follow these instructions along with Activity/Diet recommendations noted above: * Do NOT do anything where dizziness or clumsiness would be dangerous. * Rest quietly at home today, then you can be up and about tomorrow. * Have a responsible person stay with you the rest of today. * You may have had an I.V. today. If so, you may take the dressing off later today. Recommendations Call your doctor if: * Trouble breathing * Continuous vomiting for more than 24 hours * Temperature above 101 degrees * Severe abdominal pain or bloating * Pain not relieved by pain medicine ordered * There is increased drainage or redness from any incision * A large amount of rectal bleeding greater than 2-3 tablespoons. (If you had a polyp/s removed or have hemorrhoids, a small amount of blood - from the rectum is to be expected.) * You have any unanswered questions or concerns. IN THE EVENT OF A SERIOUS EMERGENCY, GO TO THE NEAREST EMERGENCY ROOM Your discharge instructions were prepared by provider Woodrow Castro. Patient Instructions Signature Page Ck Cerna Patient (or Guardian) Signature/Date: I have read and understand the instructions given to me by my caregivers. Caregiver/RN/Doctor Signature/Date: The above-named patient and/or guardian has received patient instructions on this date. + Original Patient Signature Page (only) stays with chart. Please make copy for patient.
--- NOTE | 2017-05-19 09:34 | GI REPORT ---
Procedure Date: 05/19/2017 8:40 AM Procedure: Colonoscopy Indications: Screening for colorectal malignant neoplasm Medicines: Monitored Anesthesia Care Complications: No immediate complications. Estimated Blood Loss: Estimated blood loss: none. Procedure: Pre-Anesthesia Assessment: - Prior to the procedure, a History and Physical was performed, and patient medications and allergies were reviewed. The patient's tolerance of previous anesthesia was also reviewed. The risks and benefits of the procedure and the sedation options and risks were discussed with the patient. All questions were answered, and informed consent was obtained. Prior Anticoagulants: The patient has taken aspirin, last dose was 1 day prior to procedure. ASA Grade Assessment: III - A patient with severe systemic disease. After reviewing the risks and benefits, the patient was deemed in satisfactory condition to undergo the procedure. After I obtained informed consent, the scope was passed under direct vision. Throughout the procedure, the patient's blood pressure, pulse, and oxygen saturations were monitored continuously. The scope was introduced through the anus and advanced to the cecum, identified by appendiceal orifice and ileocecal valve. The colonoscopy was performed without difficulty. The patient tolerated the procedure well. The quality of the bowel preparation was good. The terminal ileum, ileocecal valve, appendiceal orifice, and rectum were photographed. Findings: Six sessile polyps were found in the sigmoid colon. The polyps were 4 to 6 mm in size. These polyps were removed with a hot snare. Resection and retrieval were complete. Non-bleeding internal hemorrhoids were found during retroflexion. The hemorrhoids were small. Impression: - Six 4 to 6 mm polyps in the sigmoid colon, removed with a hot snare. Resected and retrieved. - Non-bleeding internal hemorrhoids. Recommendation: - Resume previous diet. - Continue present medications. - Repeat colonoscopy for surveillance based on pathology results. - Return to primary care physician as previously scheduled. Woodrow Castro DO 05/19/2017 9:34:22 AM This report has been signed electronically. Note Initiated On: 05/19/2017 8:40 AM I attest to the content of the Intraoperative Record and orders documented therein, exceptions below
--- NOTE | 2017-05-19 09:51 | Anesthesiology Progress Note ---
Anesthesia Post Op Note Date & Time May 19, 2017 at 09:51 Vital Signs Pain Intensity: 0 Vital Signs Past 12 Hours Date Time Temp Pulse Resp B/P (MAP) Pulse Ox O2 Delivery O2 Flow Rate FiO2 05/19/17 09:37 62 20 108/67 (81) 94 Mask 05/19/17 08:43 36.0 81 20 130/84 (99) 94 Room Air Notes Mental Status: alert / awake / arousable, participated in evaluation Pt Amnestic to Procedure: Yes Nausea / Vomiting: adequately controlled Pain: adequately controlled Airway Patency, RR, SpO2: stable & adequate BP & HR: stable & adequate Hydration State: stable & adequate Anesthetic Complications: no major complications apparent
[2017-05-19 10:09] VITALS: BP 140/72; PULSE 64; O2SAT 95
== END | disposition home or self-care (01) ==
LOC: C.GI 08:05
PROVIDERS: ATTEND Internal Medicine
DX: Z12.11 Encounter for screening for malignant neoplasm of colon (principal); D12.5 Benign neoplasm of sigmoid colon; K64.8 Other hemorrhoids; I10 Essential (primary) hypertension; N28.9 Disorder of kidney and ureter, unspecified; Z95.0 Presence of cardiac pacemaker; Z79.82 Long term (current) use of aspirin; Z79.899 Other long term (current) drug therapy

== ENCOUNTER → 2017-09-10 | Outpatient (CLI) | payer OTHER ==
[~2017-09-10] MED LIST changes: -MIDAZOLAM HCL 1 MG/ML 2ML VIAL ONE; -PROPOFOL IV EMULSION 10 MG/ML 20 ML VIAL IV ONE; -SODIUM CHLORIDE 0.9% 500ML 500 ML IV ONE
[2017-09-10 16:45] LABS: HEMATOCRIT 43.9 % (42-52); MEAN CELL VOLUME 91.5 fL (80-100); MEAN CORPUSCULAR HEMOGLOBIN 29.8 pg (25-34); MEAN CORPUSCULAR HGB CONC 32.6 g/dl (32-36); MEAN PLATELET VOLUME 11.1 fL (7.4-10.4); PLATELET COUNT 233 K/uL (130-400); WHITE BLOOD COUNT 7.55 K/uL (4.8-10.8)
[2017-09-10 16:54] LABS: URINE APPEARANCE CLEAR (CLEAR); URINE BILIRUBIN NEG (NEG); URINE COLOR YELLOW; URINE EPITHELIAL CELL AUTO 0-5 /lpf (0-5); URINE NITRITE NEG (NEG); URINE PH 5.5 (4.5-7.5); URINE SPECIFIC GRAVITY 1.012 (1.000-1.030); UROBILINOGEN NEG (NEG)
[2017-09-10 16:56] LABS: BLOOD UREA NITROGEN 39 mg/dl (7-18); BUN/CREATININE RATIO 27.7 (10-20); CALCIUM 9.3 mg/dl (8.5-10.1); CARBON DIOXIDE 28 mmol/L (21-32); CHLORIDE 103 mmol/L (98-107); GLUCOSE 132 mg/dl (70-99); POTASSIUM 4.2 mmol/L (3.5-5.1); SODIUM 139 mmol/L (136-145)
[2017-09-10 16:57] LABS: PHOSPHORUS 4.2 mg/dl (2.5-4.9)
[2017-09-10 16:59] LABS: MANUAL MICROSCOPIC REQUIRED? NO; REVIEW REQ? NO
[2017-09-10 17:16] LABS: URINE TOTAL PROTEIN < 5.0 mg/dl (0-11.9)
== END | disposition home or self-care (01) ==
LOC: C.LABBFT 13:41
PROVIDERS: ATTEND Internal Medicine Nephrology
DX: R80.9 Proteinuria, unspecified (principal); E55.9 Vitamin D deficiency, unspecified; N25.81 Secondary hyperparathyroidism of renal origin; N18.3 Chronic kidney disease, stage 3 (moderate); D64.9 Anemia, unspecified

== ENCOUNTER → 2017-12-02 | Outpatient (CLI) | payer OTHER ==
[~2017-12-02] VITALS: Ht 177.8 cm; Wt 144.7 kg
[~2017-12-02] MED LIST changes: +AZIT250T PO; +HYDR-5688 PO
[2017-12-02 15:42] VITALS: BP 121/70; PULSE 89; Ht 177.8 cm; Wt 144.7 kg
== END | disposition home or self-care (01) ==
LOC: C.NEUR 14:15
PROVIDERS: ATTEND Physician Assistant
DX: G47.33 Obstructive sleep apnea (adult) (pediatric) (principal); Z95.0 Presence of cardiac pacemaker

== ENCOUNTER → 2017-12-03 | Outpatient (CLI) | payer OTHER | END | disposition home or self-care (01) | LOC: C.LABBFT 15:25 | PROVIDERS: ATTEND Orthopaedic Surgery | DX: T84.84XA Pain due to internal orthopedic prosthetic devices, implants and grafts, initial encounter (principal); Y83.1 Surgical operation with implant of artificial internal device as the cause of abnormal reaction of the patient, or of later complication, without mention of misadventure at the time of the procedure ==

== ENCOUNTER → 2018-01-10 | Outpatient (CLI) | payer OTHER ==
[~2018-01-10] MED LIST changes: -AZIT250T PO; -HYDR-5688 PO
== END | disposition home or self-care (01) ==
LOC: C.LABBFT 11:37
PROVIDERS: ATTEND Urology
DX: N40.1 Benign prostatic hyperplasia with lower urinary tract symptoms (principal)

== ENCOUNTER 2018-01-23 12:37 | Emergency (ER) | payer OTHER ==
[~2018-01-23] VITALS: Ht 177.8 cm; Wt 147.6 kg
[2018-01-23 12:46] VITALS: TEMP 37.3; Ht 177.8 cm; Wt 147.6 kg
[2018-01-23] MEDS ORDERED: KETOROLAC TROMETHAMINE 60 MG/2 ML VIAL IM STA (14:00)
--- NOTE | 2018-01-23 14:29 | DIAGNOSTIC IMAGING REPORT ---
CHEST 2 VIEWS ROUTINE CLINICAL HISTORY: Persistent cough. Left-sided chest pain COMPARISON STUDY: March 2017 FINDINGS: The heart is mildly enlarged. There is a left subclavian dual-chamber central venous pacemaker. There is no failure. There is no focal pulmonary consolidation. There are no pleural effusions. There is bridging calcification of the anterior longitudinal ligament.[ IMPRESSION: No active disease in the chest. Electronically signed by: Adi Lopez M.D. 01/23/2018 2:28 PM Dictated Date/Time: 01/23/2018 2:27 PM
[2018-01-23] MEDS ORDERED: AZITHROMYCIN 250 MG TAB PO STA (14:48)
[2018-01-23] MEDS ORDERED: ALBUTEROL HFA 8 GM INHALER INH STA (14:48)
[2018-01-23] MEDS ORDERED: HYDR-5688 PO (14:52)
[2018-01-23] MEDS ORDERED: AZIT250T PO (14:52)
--- NOTE | 2018-01-23 14:55 | EMERGENCY ROOM VISIT NOTE ---
History First contact with patient: 13:52 Chief Complaint: RIB PAIN Stated Complaint: PAIN IN LEFT SIDE History of Present Illness The patient is a 62 year old male who presents to the Emergency Room with complaints of left anterior rib pain. The patient states that he has been coughing for 1 month. He was seen initially at [facility] about a month ago for acute sinusitis and cough. He was placed on an antibiotic and given Tessalon Perles. He states that his head congestion got better except for a runny nose. He continues to cough. He states last night he was coughing so hard he felt something "pop" in his left anterior lower ribs. Since that time he has pain with cough, movement or inspiration. Patient denies any shortness of breath or fever. Review of Systems 10 system review was performed and was negative unless stated otherwise history of present illness. Past Medical/Surgical History Medical Problems: (1) bradycardia, second degree heart block (2) CAROTID ARTERY OCCLUSION W O CEREBRAL INFARCTION (3) Diabetic peripheral neuropathy associated with type 2 diabetes mellitus (4) Diabetic retinopathy (5) DIAPHRAGMATIC HERNIA (6) DM type 2 (diabetes mellitus, type 2) (7) ESOPHAGEAL STRICTURE (8) Foot deformity (9) GERD (gastroesophageal reflux disease) (10) History of compression fracture of spine (11) History of diabetic ulcer of foot (12) History of osteomyelitis (13) History of pleurisy (14) HYPERLIPIDEMIA NEC/NOS (15) HYPERTENSION NOS (16) Loss of sensation (17) NEUROPATHY IN DIABETES (18) Obstructive sleep apnea (19) Osteoarthritis (20) Status post partial amputation of foot Surgical Problems: (1) Amputated great toe of left foot (2) H/O arthroscopy of knee (3) History of ear surgery (4) History of right knee joint replacement Family History Diabetes mellitus Heart disease Hypertension Social History Smoking Status: Never Smoker Alcohol Use: none Drug Use: none Marital Status: Housing Status: lives with friends Occupation Status: disabled Current/Historical Medications Scheduled Aspirin (Aspirin Ec), 81 MG PO QPM Atorvastatin (Lipitor), 20 MG PO HS Cyanocobalamin (Vitamin B-12), 1 TAB PO QAM Enalapril Maleate (Vasotec), 2.5 MG PO QAM Ergocalciferol (Vitamin D 11160 Unit), 50,000 UNIT PO WK Furosemide (Lasix), 40 MG PO BID Gemfibrozil (Lopid), 600 MG PO BID Isosorbide Mononitrate Ext Rel (Imdur Ext Rel), 1 TAB PO QAM Metformin Hcl (Glucophage), 500 MG PO BID Metoprolol Succ (Toprol Xl) (Toprol-Xl), 25 MG PO QAM Pantoprazole (Protonix), 40 MG PO BID Pregabalin (Lyrica), 75 MG PO BID Solifenacin (Vesicare), 10 MG PO QAM Tamsulosin Hcl (Flomax), 0.4 MG PO HS Scheduled PRN Oxycodone/Acetaminophen 5MG/325MG (Percocet 5MG/325MG), 1-2 TABLETS PO Q4H PRN for Pain Physical Exam Vital Signs Date Time Temp Pulse Resp B/P (MAP) Pulse Ox O2 Delivery O2 Flow Rate FiO2 01/23/18 12:46 37.3 77 20 129/76 93 Room Air Physical Exam PHYSICAL EXAM: Vital Signs were reviewed: Temperature 37.3, blood pressure 129/ 76, pulse 77 respirations 20 reviewed Nurse's notes and agree. Oxygen saturation is 93 % on room air which is slightly low l . GENERAL: 62-year-old morbidly obese male appears in no acute distress. MENTAL STATUS: Alert, oriented , coherent. EARS: Canals clear. TMs good light reflex, no erythema or fluid level noted. NOSE: Nasal mucosa with moderate erythema engorgement. PHARYNX: No erythema, no edema noted. No exudate noted. Airway is adequate. NECK: Supple, non-tender. No lymphadenopathy noted. LUNGS: Clear to auscultation without wheezes rales or rhonchi. CARDIAC: Regular rate and rhythm without murmur. CHEST WALL: No gross bony deformity noted. No erythema or edema noted. The patient has tenderness to palpation over the anterior lower l left chest wall. Remainder chest wall is nontender. SKIN: No rashes noted. Medical Decision & Procedures ER Provider Diagnostic Interpretation: CHEST 2 VIEWS ROUTINE CLINICAL HISTORY: Persistent cough. Left-sided chest pain COMPARISON STUDY: March 2017 FINDINGS: The heart is mildly enlarged. There is a left subclavian dual-chamber central venous pacemaker. There is no failure. There is no focal pulmonary consolidation. There are no pleural effusions. There is bridging calcification of the anterior longitudinal ligament.[ IMPRESSION: No active disease in the chest. Electronically signed by: Adi Lopez M.D. 01/23/2018 2:28 PM Medications Administered Medications (Trade) Dose Ordered Sig/John Route Start Time Stop Time Status Last Admin Dose Admin Ketorolac Tromethamine (Toradol Inj) 60 mg NOW STAT IM 01/23/18 14:00 01/23/18 14:01 DC 01/23/18 14:29 60 MG ED Course The patient was evaluated. The patient was given Toradol 60 mg IM for pain since he drove himself to the emergency room today. Chest x-ray was ordered and interpreted by the radiologist and myself as above without any acute findings. The patient was independently evaluated by Dr. Bledsoe who agrees with treatment plan. The patient was given a Ventolin HFA inhaler 2 puffs while in the ER and given the remainder to use at home as directed. He was also given Zithromax 500 mg in the ER and a Excel home pack. The patient was discharged home in stable condition.. Medical Decision Differential diagnoses include pneumonia, bronchitis, URI, costochondritis [place] Drug Monitoring Program Search Results: patient reviewed within database Medication Reconcilliation Current Medication List: was personally reviewed by pr Blood Pressure Screening Patient's blood pressure: Normal blood pressure Impression Primary Impression: Bronchitis Additional Impression: Costochondritis Departure Information Dispostion Home / Self-Care Condition GOOD Prescriptions Hydrocodone/Acetaminophen 5MG/325MG (Excel 5MG/325MG) Tab 1-2 TABLET PO Q6 Y for Pain, #20 TAB For Initial Treatment Prov: Court Jones PA-C 01/23/18 Azithromycin (Zithromax) 250 Mg Tab 250 MG PO DAILY for 4 Days, #4 TAB Prov: Court Jones PA-C 01/23/18 Referrals No Doctor, Assigned (PCP) Forms HOME CARE DOCUMENTATION FORM, IMPORTANT VISIT INFORMATION, WORK / SCHOOL INSTRUCTIONS Patient Instructions Bronchitis Acute, ED Chest Pain Costochondritis, My [facility] Additional Instructions Start the Zithromax tomorrow and take 1 tablet daily for 4 days. Use the albuterol inhaler 2 puffs every 4 hours as needed for cough and chest tightness for 5 days. Take the Excel as needed for pain. Do not drive while taking the Excel. Recommend follow-up appointment with your family doctor early next week for reevaluation. If symptoms worsen in the interim, return to ER. Problem Qualifiers
[2018-01-23] MEDS ORDERED: NORCO 5/325MG HOME PACK PO ONE (15:00)
[2018-01-23 15:13] VITALS: BP 165/95; PULSE 82; O2SAT 99
--- NOTE | 2018-01-23 15:34 | EMERGENCY ROOM VISIT NOTE ---
ED Visit Note First contact with patient: 13:52 The patient was seen and examined with Bri Jones [facility]. I agree with the history, physical and findings. Please see the note for disposition and details.
== END 2018-01-23 15:15 | disposition home or self-care (01) ==
LOC: C.EDB 12:38 → C.EDC 15:15
DX: J40 Bronchitis, not specified as acute or chronic (principal); M94.0 Chondrocostal junction syndrome [Tietze]; I44.1 Atrioventricular block, second degree; I65.29 Occlusion and stenosis of unspecified carotid artery; E11.40 Type 2 diabetes mellitus with diabetic neuropathy, unspecified; E11.319 Type 2 diabetes mellitus with unspecified diabetic retinopathy without macular edema; K21.9 Gastro-esophageal reflux disease without esophagitis; E78.5 Hyperlipidemia, unspecified; I10 Essential (primary) hypertension; M19.90 Unspecified osteoarthritis, unspecified site; E66.01 Morbid (severe) obesity due to excess calories; Z89.422 Acquired absence of other left toe(s); Z96.651 Presence of right artificial knee joint; Z79.82 Long term (current) use of aspirin; Z79.84 Long term (current) use of oral hypoglycemic drugs; Z83.3 Family history of diabetes mellitus; Z82.49 Family history of ischemic heart disease and other diseases of the circulatory system

== ENCOUNTER → 2018-02-02 | Outpatient (CLI) | payer OTHER ==
[~2018-02-02] MED LIST changes: +HYDR-5688 PO; +OPTIRAY 320 IV PRN; -SOLI10TA2 PO
--- NOTE | 2018-02-02 15:13 | DIAGNOSTIC IMAGING REPORT ---
CHEST CT WITH CONTRAST CT DOSE: 2692.40 mGy.cm HISTORY: Acute atypical chest and left upper abdominal pain. History of sarcoid. R07.89,CHEST PAIN,R10.12 LT UPPER QUAD PAIN TECHNIQUE: Multiaxial CT images of the chest, and abdomen were performed following the intravenous administration of contrast. A dose lowering technique was utilized adhering to the principles of ALARA. COMPARISON: Chest radiographs 01/23/2018, chest CT 12/27/2014, CT abdomen and pelvis 12/25/2014. FINDINGS: CT CHEST: The thyroid is homogeneous. There is mild multichamber cardiac enlargement without pericardial effusion. Left subclavian pacer is noted with leads overlying the right atrium and right ventricle. Coronary arterial disease. Thoracic aorta is normal in course and caliber without aneurysm or dissection. The opacified pulmonary arterial tree is unremarkable. Mediastinal and hilar adenopathy with index right paratracheal lymph node measuring 1.3 cm in short axis, image 76 series 6, previously 8 mm. Enlarged right hilar lymph node measures 2.3 x 1.4 cm on image 97 series 6, previously 6 mm in short axis. No axillary adenopathy identified. There is no pneumothorax or pleural effusion. Mild dependent subsegmental bibasilar atelectasis. Linear subsegmental pleural based opacities of the lung bases are also noted suggesting areas of scarring and/or atelectasis. A few tiny calcified granulomas are noted. No evidence of interstitial lung disease. 2 mm nodule adjacent to the right major fissure suggests probable perifissural lymph node. Soft tissues of the chest appear unremarkable. Bones appear intact. Degenerative changes are noted about the shoulders and spine. No sternal fracture. CT ABDOMEN: Layering gallstones are seen within the gallbladder lumen. No CT evidence of acute cholecystitis. The liver, spleen and adrenal glands are within normal limits. Mild to moderate generalized pancreatic atrophy. Mild to moderate bilateral perinephric stranding, nonspecific. Low attenuating lesions of the left kidney measuring up to 3.4 cm suggest benign cysts. There is no renal calculi or obstructive uropathy identified. Aorta is normal in course and caliber. No aneurysm or bulky adenopathy. No bowel obstruction or focal bowel wall thickening. The appendix appears normal. Soft tissues are unremarkable. The bones appear mildly demineralized. Multilevel degenerative changes about the spine. Levoscoliosis of the lumbar spine. IMPRESSION: 1. No acute intrathoracic or intra-abdominal abnormality identified. 2. Multiple prominent and enlarged mediastinal and bilateral hilar lymph nodes, likely related to the patient's reported history of sarcoidosis. 3. Mild subsegmental bibasilar atelectasis without lobar airspace consolidation. 4. Mild cardiomegaly. 5. Cholelithiasis without CT evidence of acute cholecystitis. 6. Normal appendix. Electronically signed by: Tyrell Fairchild M.D. 02/02/2018 3:11 PM Dictated Date/Time: 02/02/2018 2:57 PM
== END | disposition home or self-care (01) ==
LOC: C.CTS 13:56
PROVIDERS: ATTEND Family Medicine
DX: R59.0 Localized enlarged lymph nodes (principal); K80.20 Calculus of gallbladder without cholecystitis without obstruction; R07.89 Other chest pain

== ENCOUNTER → 2018-03-11 | Outpatient (CLI) | payer OTHER ==
[~2018-03-11] MED LIST changes: -OPTIRAY 320 IV PRN
[2018-03-11 16:25] LABS: HEMATOCRIT 39.9 % (42-52); HEMOGLOBIN 13.6 g/dL (14.0-18.0); MEAN CELL VOLUME 90.1 fL (80-100); MEAN CORPUSCULAR HEMOGLOBIN 30.7 pg (25-34); MEAN CORPUSCULAR HGB CONC 34.1 g/dl (32-36); MEAN PLATELET VOLUME 10.7 fL (7.4-10.4); PLATELET COUNT 232 K/uL (130-400); RED CELL DISTRIBUTION WIDTH CV 14.5 % (11.5-14.5); RED CELL DISTRIBUTION WIDTH SD 47.5 fL (36.4-46.3); WHITE BLOOD COUNT 7.23 K/uL (4.8-10.8)
[2018-03-11 16:37] LABS: ALBUMIN 3.5 gm/dl (3.4-5.0); BLOOD UREA NITROGEN 32 mg/dl (7-18); CALCIUM 9.6 mg/dl (8.5-10.1); CARBON DIOXIDE 27 mmol/L (21-32); CREATININE 1.62 mg/dl (0.60-1.40); GLUCOSE 136 mg/dl (70-99); POTASSIUM 3.9 mmol/L (3.5-5.1); SODIUM 136 mmol/L (136-145)
[2018-03-11 16:39] LABS: PHOSPHORUS 3.4 mg/dl (2.5-4.9)
== END | disposition home or self-care (01) ==
LOC: C.LABBFT 13:01
PROVIDERS: ATTEND Internal Medicine Nephrology
DX: R80.9 Proteinuria, unspecified (principal); E55.9 Vitamin D deficiency, unspecified; N18.3 Chronic kidney disease, stage 3 (moderate); N25.81 Secondary hyperparathyroidism of renal origin; D64.9 Anemia, unspecified

== ENCOUNTER 2019-08-16 06:07 | Inpatient (IN) ==
--- NOTE | 2019-07-24 12:26 | PAT Medication Instructions ---
Medication Instructions Date of Service July 24, 2019 Home Medications albuterol sulfate HFA 90 mcg/actuation aerosol inhaler 2 puffs INH Q6H NEEDED aspirin 81 mg tablet,delayed release 81 mg PO QPM enalapril maleate 2.5 mg tablet 2.5 mg PO QAM ergocalciferol (vitamin D2) 50,000 unit capsule 50,000 units PO MONTHLY fesoterodine ER 8 mg tablet,extended release 24 hr 8 mg PO QAM furosemide 40 mg tablet 120 mg PO QAM isosorbide mononitrate ER 30 mg tablet,extended release 24 hr 30 mg PO QAM linagliptin 5 mg tablet 5 mg PO QPM metformin 500 mg tablet 500 mg PO BID metoprolol succinate ER 50 mg tablet,extended release 24 hr 50 mg PO QAM oxycodone-acetaminophen 5 mg-325 mg tablet 1 tab PO Q4H NEEDED pantoprazole 40 mg tablet,delayed release 40 mg PO QAM pregabalin 75 mg capsule 75 mg PO BID tamsulosin 0.4 mg capsule 0.4 mg PO QPM dulaglutide [Trulicity] 0.75 mg SUBCUT WK atorvastatin 40 mg PO PM cyanocobalamin (vitamin B-12) [Vitamin B-12] 2,500 mcg SUBLINGUAL QAM linaclotide [Linzess] 145 mcg PO DAILY NEEDED Continue as directed ergocalciferol (vitamin D2) 50,000 unit capsule 50,000 units PO MONTHLY dulaglutide [Trulicity] 0.75 mg SUBCUT WK DO NOT take the morning of surgery linaclotide [Linzess] 145 mcg PO DAILY NEEDED enalapril maleate 2.5 mg tablet 2.5 mg PO QAM fesoterodine ER 8 mg tablet,extended release 24 hr 8 mg PO QAM furosemide 40 mg tablet 120 mg PO QAM metformin 500 mg tablet 500 mg PO BID cyanocobalamin (vitamin B-12) [Vitamin B-12] 2,500 mcg SUBLINGUAL QAM Take morning of surgery With a small sip of water, OTHERWISE NOTHING TO EAT OR DRINK AFTER MIDNIGHT: isosorbide mononitrate ER 30 mg tablet,extended release 24 hr 30 mg PO QAM metoprolol succinate ER 50 mg tablet,extended release 24 hr 50 mg PO QAM pantoprazole 40 mg tablet,delayed release 40 mg PO QAM pregabalin 75 mg capsule 75 mg PO BID albuterol sulfate HFA 90 mcg/actuation aerosol inhaler 2 puffs INH Q6H NEEDED (if needed, bring to hospital) oxycodone-acetaminophen 5 mg-325 mg tablet 1 tab PO Q4H NEEDED (if needed; stop 4 hours before surgery) Take evening before surgery aspirin 81 mg tablet,delayed release 81 mg PO QPM linagliptin 5 mg tablet 5 mg PO QPM metformin 500 mg tablet 500 mg PO BID pregabalin 75 mg capsule 75 mg PO BID tamsulosin 0.4 mg capsule 0.4 mg PO QPM atorvastatin 40 mg PO PM oxycodone-acetaminophen 5 mg-325 mg tablet 1 tab PO Q4H NEEDED (if needed) albuterol sulfate HFA 90 mcg/actuation aerosol inhaler 2 puffs INH Q6H NEEDED (if needed) Other Notes If you have any questions please call us at [phone] or [phone] or [phone] or [phone]
--- NOTE | 2019-07-24 12:37 | Anesthesiology Consultation ---
Date of Service July 24, 2019 Assessment & Plan (1) Encounter for pre-operative examination: - No previous anesthesia records re: intubation. Chart Review Chart Review: Pending: Refer to Additional Notes / Consult section (Pending cardiology consult and most recent pacer check) and Patient seen in Pre Admission Testing Consults Requested cardiac (Dr. Harris (08/07)) Teaching & Discussion Pre-Anesthesia Teaching/Discussion Notes: Instructed NPO after midnight before surgery, except medications with 15 cc of water. Medication instructions provided according to the PAT guidelines. History Surgery Operation Date: 08/16/19 07:00 Proposed Procedures p Right Total Knee Revision - Thaddeus Gallegos MD Height/Weight Height: 5 ft 10 in Weight: 144.9 kg Allergies Allergy/AdvReac Type Severity Reaction Status Date / Time adhesive Allergy Unknown RASH Verified 07/01/19 11:06 blue dye Allergy Unknown UNKNOWN RX Verified 07/01/19 11:06 duloxetine AdvReac Mild CHEST Verified 07/01/19 11:06 PAIN, WEIGHT LOSS semaglutide [From Ozempic] AdvReac Unknown ACHY JOINTS Verified 07/17/19 10:36 Medications Home Medications Medication Instructions Recorded Confirmed Last Taken albuterol sulfate HFA 90 2 puffs INH Q6H PRN 10/07/18 07/17/19 Unknown mcg/actuation aerosol inhaler aspirin 81 mg tablet,delayed 81 mg PO QPM 10/07/18 07/17/19 Unknown release enalapril maleate 2.5 mg tablet 2.5 mg PO QAM 10/07/18 07/17/19 Unknown ergocalciferol (vitamin D2) 50,000 50,000 units PO MONTHLY 10/07/18 07/17/19 Unknown unit capsule fesoterodine ER 8 mg 8 mg PO QAM 10/07/18 07/17/19 Unknown tablet,extended release 24 hr furosemide 40 mg tablet 120 mg PO QAM 10/07/18 07/17/19 Unknown isosorbide mononitrate ER 30 mg 30 mg PO QAM 10/07/18 07/17/19 Unknown tablet,extended release 24 hr linagliptin 5 mg tablet 5 mg PO QPM 10/07/18 07/17/19 Unknown metformin 500 mg tablet 500 mg PO BID 10/07/18 07/17/19 Unknown metoprolol succinate ER 50 mg 50 mg PO QAM 10/07/18 07/17/19 Unknown tablet,extended release 24 hr oxycodone-acetaminophen 5 mg-325 1 tab PO Q4H PRN 10/07/18 07/17/19 Unknown mg tablet pantoprazole 40 mg tablet,delayed 40 mg PO QAM 10/07/18 07/17/19 Unknown release pregabalin 75 mg capsule 75 mg PO BID 10/07/18 07/17/19 Unknown tamsulosin 0.4 mg capsule 0.4 mg PO QPM 10/07/18 07/17/19 Unknown dulaglutide [Trulicity] 0.75 mg SUBCUT WK 07/01/19 07/17/19 Unknown atorvastatin 40 mg PO PM 07/17/19 07/17/19 Unknown cyanocobalamin (vitamin B-12) 2,500 mcg SUBLINGUAL QAM 07/17/19 07/17/19 Unknown [Vitamin B-12] linaclotide [Linzess] 145 mcg PO DAILY PRN 07/17/19 07/17/19 Unknown Past Medical History Medical History Diabetes mellitus with diabetic polyneuropathy Anemia BPH (benign prostatic hyperplasia) CKD (chronic kidney disease) stage 3, GFR 30-59 ml/min Cataract Chronic systolic (congestive) heart failure GERD (gastroesophageal reflux disease) HTN (hypertension) (Unknown) Hearing loss Hyperlipidemia Hypertension Morbid obesity Osteoarthritis Pacemaker Poor historian CAN'T REMEMBER WHY HE SEES UROLOGY AND DR MENDOZA - HAD TO REFER TO HAN FROM MD OFFICE Sleep apnea Venous insufficiency Exercise / Class Metabolic Activity III < 4 Walking/Shop/Light housework (Walks minimally. Does rare housework. Can do 1-2 steps with great difficulty. Does get SOB with activity. Denies CP. ) Past Family History Family History Father Family history of diabetes mellitus Past Surgical History Surgical History History of carpal tunnel surgery of left wrist History of left knee replacement History of permanent cardiac pacemaker placement ? DATE [facility] History of surgery EAR History of total right knee replacement (TKR) Hx of cardiac cath ? DATE [facility] Partial nontraumatic amputation of left foot LEFT GREAT TOE - D/T DIABETES Past Anesthesia History No Hx of Anesthesia Complications and No Family Hx of Anesthesia Complications History of PONV No Hx of PONV and No Hx of Motion Sickness Social History Smoking Status: Never smoker Do You Dip or Chew Tobacco: No Hx Alcohol Use: No Hx Substance Use: No Review of Systems Patient denies chest pain, shortness of breath, cough, wheezing, palpitations. +Joint Pain (Knee, shoulder, generalized) +Acid reflux (controlled with medications for most part) +SWIFT (has never tried using inhaler for this) Physical Exam Vital Signs BP: 108/71 P: 75 R: 16 T: 98.1 SPO2: 95% on RA Constitutional + morbidly obese ENMT Mouth: + poor dentition and + macroglossia Thyromental Distance: > or= 3.5 Finger Breadths Mallampati Class: II Lower lip tattoo on inside of lip says "Thunder Tongue" Neck + facial hair (Pt refuses to shave, will trim mustache); neck extension not limited Respiratory normal respiratory effort Auscultation: + diminished lung sounds Cardiovascular Distant heart tones due to body habitus Neurologic moves all extremities Psychiatric Orientation: alert and oriented x 3 Testing Laboratory Results PT 10.7 Seconds (9.0-12.0) 07/24/19 13:15 INR 1.0 (0.9-1.1) 07/24/19 13:15 APTT 26.5 Seconds (21.0-31.0) 07/24/19 13:15 Hemoglobin A1c 7.5 % (4.5-5.6) H 07/24/19 13:15 Urine Color Yellow 07/24/19 13:15 Urine Appearance Clear (Clear) 07/24/19 13:15 Urine pH 7.0 (4.5-7.5) 07/24/19 13:15 Ur Specific [place] 1.010 (1.000-1.030) 07/24/19 13:15 Urine Protein Negative (Negative) 07/24/19 13:15 Urine Glucose (UA) Negative (Negative) 07/24/19 13:15 Urine Ketones Negative (Negative) 07/24/19 13:15 Urine Nitrite Negative (Negative) 07/24/19 13:15 Ur Leukocyte Esterase Negative (Negative) 07/24/19 13:15 Blood Type O Negative 07/24/19 13:15 Antibody Screen NEGATIVE 07/24/19 13:15 Laboratory Tests 07/01/19 07/01/19 10:15 10:15 WBC 10.77 Hgb 14.1 Hct 41.2 L Plt Count 226 Sodium 136 Potassium 3.6 Chloride 101 Carbon Dioxide 29 BUN 23 H Creatinine 1.29 Glucose 163 H Electrocardiogram Date: 07/01/19 Atrial paced at 77bpm and sinus beats Ventricular paced rhythm with occasional PVCs When compared with ECG of 07/29/16, PVCs are now present Atrial paced beats are now present Ventricular rate has increase by 14 bpm Chest X-Ray Date: 07/01/19 FINDINGS: Progressive interstitial and vascular thickening consistent with mild congestive change. There are low lung volumes. Left-sided dual-chamber pacemaker. The heart is mildly enlarged. No pleural effusions. No pneumothorax. A few small bibasilar linear densities favor subsegmental atelectasis. IMPRESSION: Cardiomegaly with mild congestive change. This is slightly progressed. Echocardiogram Date: 11/04/18 EF: 45-49% The septal motion is abnormal consistent with right ventricular pacemaker. The remaining left ventricular wall segments are borderline hypokinetic. The right ventricular cavity size is enlarged (basal dimension >4.2cm RV apical 4 chamber view). The right ventricular systolic function is qualitatively normal. There is aortic valve sclerosis without stenosis. The aortic root is borderline enlarged. The proximal ascending thoracic aorta is mildly enlarged. Compared to last available study, changes are noted as follows: LV systolic function is mildly improved.
[2019-07-24 15:26] LABS: Appearance Urine Clear (Clear); Bilirubin Urine Negative (Negative); Blood Urine Negative (Negative); Color Urine Yellow; Glucose Urine UA Negative (Negative); Ketones Urine Negative (Negative); Leukocyte Esterase Urine Negative (Negative); Nitrite Urine Negative (Negative); Protein Urine Negative (Negative); Urobilinogen Urine Negative (Negative)
[2019-07-24 15:36] LABS: Partial Thromboplastin Time 26.5 Seconds (21.0-31.0); Prothrombin Time 10.7 Seconds (9.0-12.0)
[2019-07-25 06:07] LABS: Estimated Average Glucose 169 mg/dl; Hemoglobin A1C 7.5 % (4.5-5.6)
--- NOTE | 2019-08-01 08:03 | History and Physical Report ---
DATE OF ADMISSION: 08/16/2019 CHIEF COMPLAINT: Right knee pain and swelling. HISTORY OF PRESENT ILLNESS: This is a 63-year-old white male presents to the office with complaints of right knee pain and swelling for more than a year. He initially had his right knee replaced in July 2013. He has seen numerous physicians over last year. Films show no loosening of his prosthesis. Lab works including Alpha Defensin shows no evidence of infection. He elects to proceed with right total knee revision in hopes of alleviating his pain. Pain is currently affecting his ADLs. It is better with sedentary activity and worse with weightbearing activity. No numbness or tingling. He denies any fevers or chills. Preoperative imaging has been obtained including bone scan. PAST MEDICAL HISTORY: Significant for hypertension, elevated cholesterol, use of BiPAP, sleep apnea, diabetes, osteoarthritis, GERD, hiatal hernia, and obesity. PAST SURGICAL HISTORY: Left great toe partial amputation, right knee TKA in July 2013, left knee TKA 2013, stapes removal with prosthesis insertion, pacemaker implantation, heart catheterization, carpal tunnel release. ALLERGIES: KNOWN ALLERGY TO BLUE DYE, ADHESIVE TAPE, and CYMBALTA. CURRENT MEDICATIONS: Percocet 5/325 mg p.r.n., atorvastatin 40 mg p.o. daily, furosemide 40 mg 3 tablets p.o. daily, isosorbide mononitrate 30 mg p.o. q.a.m., Lyrica 75 mg p.o. daily, metformin 500 mg p.o. b.i.d., metoprolol 50 mg p.o. daily, pantoprazole 40 mg p.o. daily, tamsulosin 0.4 mg p.o. daily, Toviaz 8 mg p.o. daily, Tradjenta 5 mg p.o. daily, Trulicity pen 0.75 mg daily. FAMILY HISTORY: Noncontributory. SOCIAL HISTORY: The patient is . No tobacco use. No ETOH use. Retired. REVIEW OF SYSTEMS: A total of 10 systems are reviewed and are significant only for above stated conditions. PHYSICAL EXAMINATION: GENERAL: Well-developed, well-nourished, obese middle aged white male in no acute distress. Sitting in a chair. Alert and oriented. VITAL SIGNS: Height 177.8 cm, weight 140 kilograms. BMI 44.4, temperature 36.7 oral, BP 130/84, heart rate 77, O2 sat 98% on room air. SKIN: Warm and dry with good turgor. No rashes or lesions. No ecchymosis or erythema. Extensive scarring on his forearms. Surgical scars on his knees. Moderate intraarticular effusion in the right knee. No open wounds. Minor peripheral venous stasis changes in the lower legs. HEENT: Normocephalic, atraumatic. Eyes PERRLA, EOMI. Wears glasses. Nares patent bilaterally without turbinate enlargement. Oropharynx without erythema or exudate. No lesions noted. Uvula midline. Oral mucosa moist. Fair dentition. Several teeth missing. HEART: RRR. Occasional skipped beat. No MGR. LUNGS: Clear to auscultation bilaterally. No crackles, rhonchi or wheezing. Fair air movement. Distant breath sounds. ABDOMEN: Obese. Bowel sounds present x4, soft, nontender. No organomegaly. No masses. MUSCULOSKELETAL: Right knee has a moderate intraarticular effusion as stated. No redness. Mild warmth. Has painful range of motion. Full terminal extension. Flexion to around 90 degrees. Stable collateral ligaments. Slight varus positioning. No defect in the patellar tendon or quadriceps tendon. Intact motor function of the ankle. Ambulatory using a walker. NEUROLOGIC: Gross sensation is intact across the lower extremities by soft touch. Peripheral pulses are 2+. Cranial nerves II-XII are intact. DATA: Bone scan previously obtained shows increased activity around the femur and tibia of the right knee. Radiographic imaging shows loosening of his femoral prosthesis. IMPRESSION: Right knee aseptic loosening of total knee arthroplasty. PLAN: Postoperative prescription for Coumadin and Percocet will be provided at discharge from the hospital. Anticipate discharge to home with home health services. He already has a walker. Preoperative lab work, EKG, and chest x-ray have been ordered. Medical clearance has been received from his PCP. He is awaiting cardiac clearance from Dr. Harris from cardiology. Postoperative followup appointment has been made. SHERRIE
[~2019-08-16 06:07] MED LIST changes: -ASPI81TA28 PO; -ATOR-22 PO; +CEFAZOLIN 3000MG 72.5 ML IV SCH; -CYAN100T PO; -ENAL1TAB29 PO; -ERGO500037 PO; -FURO40TA3 PO; -GEMF600T PO; -GLC/500 PO; -HYDR-5688 PO; -ISOS30TA35 PO; +LR 500ML BOLUS, THEN 15ML/HR IV SCH; +LR 60ML/HR IV SCH; -METO25TA3 PO; -OXYC-57 PO; -PANT40TA PO; -PREG1CAP28 PO; +ROPIVACAINE 0.5% HCL/PF 150 MG, BUPIVACAINE 0.5% MPF 30 ML, EPINEPHrine 0.15 MG, Ketoro... INFIL SCH; -TAMS0.4C38 PO; +TRANEXAMIC ACID 1,000 MG **IV Pre-op IV SCH; +VANCOMYCIN HCL 2,000 MG in SODIUM CHLORIDE 0.9% 500 ML IV SCH
--- NOTE | 2019-08-16 06:36 | History & Physical Bridge Note ---
Date of Service August 16, 2019 History & Physical Bridge Note I have examined the patient, reviewed the History & Physical and in the interval since the performance of the History & Physical I have noted the following changes of clinical significance:consent obtained. no changes noted
[2019-08-16] MEDS ORDERED: BUPIVACAINE 0.5 % 5 MG/1 ML PF 10ML VIAL ONE (07:14)
[2019-08-16] MEDS ORDERED: ROPIVACAINE 0.5% 5 MG/ML 30 ML VIAL ONE (07:15)
[2019-08-16] MEDS ORDERED: MIDAZOLAM HCL 1 MG/ML 2ML VIAL ONE (07:46)
[2019-08-16] MEDS ORDERED: fentaNYL citrate 100 MCG/2 ML VIAL ONE ×2 (07:46→11:44)
[2019-08-16] MEDS ORDERED: ePHEDrine sulfate 50 MG/ML AMP IV PRN (08:15)
[2019-08-16] MEDS ORDERED: ONDANSETRON INJ 2 MG/ML 2 ML VIAL IV PRN (08:15)
[2019-08-16] MEDS ORDERED: PHENYLEPHRINE 100MCG/ML 5ML SYR IV PRN (08:15)
[2019-08-16] MEDS ORDERED: HYDROmorphone INJ 1 MG/ML SYRINGE IV PRN (08:15)
[2019-08-16] MEDS ORDERED: ATROPINE SULFATE 0.1 MG/ML 10ML SYR IV PRN (08:15)
[2019-08-16] MEDS ORDERED: ORTHO JOINT ANESTHETIC ONE (08:32)
[2019-08-16] MEDS ORDERED: PROPOFOL IV EMULSION 10 MG/ML 20 ML VIAL IV ONE (11:07)
--- NOTE | 2019-08-16 11:51 | Operative Report ---
Post Operative Report Pre & Post Diagnosis Operation Date: 08/16/19 08:50 Pre-Op Diagnosis: Asceptic Loosening Right Total Knee Arhtroplasty Post-Op Diagnosis: Asceptic Loosening Right Total Knee Arhtroplasty Procedure Operation Date: 08/16/19 08:50 Actual Procedures Right Total Knee Revision(Right) - Thaddeus Gallegos MD Surgeon ANAY Gallegos MD Case Specialist Oleksandr/Yasmine PAC Estimated Blood Loss 100 Findings Consistent with Post-Op Diagnosis Specimens see op report Drains none Complications none Disposition Accompanied Patient To Recovery: Yes Disposition: Recovery Room Indications This 63-year-old white male presented to the office with complaints of intractable right knee pain. He previously had a right total knee arthroplasty and was having persisting pain. Radiographic imaging showed loosening. He elected to proceed with surgical intervention after being educated about potential risks and outcomes. Description of Procedure Patient given a spinal anesthetic and was taken to the operating room where he was given sedation. He was prepped and draped in the usual sterile fashion. Please see Dr. Gallegos's operative report for specifics of the procedure. I was present for the entire case from initial patient positioning through final wound closure. Assistance was provided in tissue retraction, hemostasis, old implant extraction, trial implant placement, final implant placement, and final wound closure. Patient was taken to the recovery room in satisfactory condition. I attest to the content of the Intraoperative Record and any orders documented therein. Any exceptions are noted below.
--- NOTE | 2019-08-16 11:53 | Operative Report ---
Post Operative Report Pre & Post Diagnosis Operation Date: 08/16/19 08:50 Pre-Op Diagnosis: Asceptic Loosening Right Total Knee Arhtroplasty Post-Op Diagnosis: Asceptic Loosening Right Total Knee Arhtroplasty Procedure Operation Date: 08/16/19 08:50 Actual Procedures p Right Total Knee Revision(Right) - Thaddeus Gallegos MD Surgeon Thaddeus Gallegos MD Heading And Priming Operator Oleksandr Underwood Estimated Blood Loss 100 Findings Consistent with Post-Op Diagnosis Specimens As per the procedure notes Complications none Disposition Accompanied Patient To Recovery: Yes Disposition: Recovery Room Indications 63 years male status post right total knee replacement with persistent pain Description of Procedure Supine position, standard prep and drape, under tourniquet control, timeout for patient safety Right revision total knee arthroplasty Please see Dr. Gallegos's procedure notes for specific details I was present throughout the procedure, assisted for wound closure under transfer the patient to PACU in stable condition. I attest to the content of the Intraoperative Record and any orders documented therein. Any exceptions are noted below.
--- NOTE | 2019-08-16 12:24 | Operative Report ---
DATE OF OPERATION: 08/16/2019 SURGEON: Thaddeus Gallegos MD RESPIRATORY DIRECTOR: Oleksandr is the fellow and STEPHANIE Underwood. PREOPERATIVE DIAGNOSIS: Loose not infected right total knee replacement with poly wear. POSTOPERATIVE DIAGNOSIS: Loose not infected right total knee replacement with poly wear. OPERATION PERFORMED: Revision right total knee replacement using a metaphyseal sleeve, Yoni and Yoni rotating platform sigma system, right knee. SUMMARY OF IMPLANTS: Tibia size 3 tray mobile bearing, revision tray sleeve was a 45, stem was a 12 x 75, insert was a 3 x 20 TC3 RP insert. Femur was a size 3 TC3, sleeve was 34, stem was 14 x 75, augment was distal, medial 8, lateral 4, augment posterior medial and lateral 8, bolt was a +2, adapter was a 5 degree. ESTIMATED BLOOD LOSS: 100 mL. CRYSTALLOID: Per anesthesia. Did obtained one intraoperative culture despite all alpha defensin and cultures preoperatively were normal. PERIOPERATIVE SITUATION: Medically cleared male with intractable knee pain. His implant has been in for some time. He has significant leg pain, has difficulty bearing weight. He has had no fevers, no draining wounds. His laboratory markers have been uneventful. His Synovasure and alpha defensin cultures were negative for any infection. At this point in time, he wants to proceed with surgical treatment. X-ray and bone scan reveals loosening. DESCRIPTION OF PROCEDURE: The patient was properly identified, site verified, consent verified. Antibiotics confirmed as being given. The right lower extremity was prepped and draped in usual routine fashion. Tourniquet was inflated to 300 mmHg after exsanguination of limb with a rubber Esmarch bandage for a total of 116 minutes. The old incision was utilized. Parapatellar arthrotomy was performed. There was extensive scarring around the extensor mechanism. This required careful released to allow the patella to be everted without any bulging the patellar tendon. The proximal dissection did not require any snip. A complete synovectomy was then carried out. There was significant third body wear discoloration of the synovium and some fragments of cement. Once this was able to be all removed, the knee was flexed to 90 degrees with excellent exposure. The femur was easily noted to be loose. It was gently knocked off without any difficulty. There was significant medial wear and careful tedious dissection allowed preservation of the medial collateral ligament on the femoral attachment. All of the soft tissue was removed from the femur. Once this was carried out, the tibia was subluxated. The poly liner was removed easily and then the cement loosened with power saw and then tapped with osteotomes and then the implant removed. There was retained cement in the tibia. This was all chiseled out using hand and Ultra-Drive instrumentation, this was all removed, irrigated copiously. Once this was all cleaned out and completed, the tibia was prepared first followed by the femur, reamed up to a size 12 and broached up to a size 45 with excellent rotational control. The stem was 75 mm long. The trial was then placed. The femur was then reamed and then broached appropriately and broached to a 34 with excellent rotational control. The stem was 14 x 75. Once the femoral distal cuts and condylar and chamfer cuts were made, one could see that the distal augments needed to be 8 medially, 4 laterally and posteriorly was 8 and 8. We went +2 on the adapter to posterioralize the femur. A 5 degree valgus. This allowed excellent positioning of the femur and the tibia. Trial reductions were carried out with multiple spacers and a 20 spacer provided no loss of extension, excellent flexion and mid range stability. Once this was all put in, area was all injected with Orthomix. Everything was then removed. The implants were then assembled and constructed on the back table. Once everything was irrigated and debrided, they were cemented into position, tibia followed by femur. After 12 minutes, the tourniquet deflated. Minor bleeding points controlled with electrocautery. After 14 minutes, the knee was checked. It was stable with full range of motion extension 120 degrees of flexion. The patella tracked well. The knee was then subluxated. The trial liner removed. The area was then finally irrigated with Betadine and Pulsavac and then Betadine again. There was no cement removal required. Permanent liner was seated and the knee reduced. The patella was preserved due to the fact that it was small, did not want to create any type of avascular necrosis and at this point in time should hold up for an extended period of time. The wound was then closed at 50-60 degrees of flexion with #2 Vicryl, 2-0 Vicryl and stainless steel clips. Appropriate dressing applied including Korey Spencer cotton. The patient will be weightbearing as tolerated with a knee immobilizer on. He will have DVT prophylaxis per his protocol. Pathology is pending on the bone. There was 1 culture pending. We will keep him on oral antibiotics until final result. I attest to the content of the Intraoperative Record and any orders documented therein. Any exception s are noted below.
--- NOTE | 2019-08-16 12:25 | Progress Note ---
DATE: 08/16/2019 Status post revision right total knee replacement. The patient's case went on uneventful. He is sitting up in bed in the recovery room having no issues. He denies any chest pain, shortness of breath, fever, chills, nausea, vomiting or headache. Vital signs are stable. He is afebrile. Neurovascular check is limited by his spinal. It is now starting to wear off. Postop x-rays are pending. ASSESSMENT: Overall, doing well. Denies any real issues at this point, continue with postoperative care pathway. Check x-rays and mobilize.
--- NOTE | 2019-08-16 12:27 | XRay Report ---
XR knee RT 2V routine CLINICAL HISTORY: 63 years-old Male presenting with Surgical Post Op. TECHNIQUE: Frontal and crosstable lateral views of the right knee were obtained. COMPARISON: 05/08/2019. FINDINGS: There has been interval revision of the prior right knee arthroplasty with placement of a constrained total right knee arthroplasty with patellar resurfacing. Extended femoral and tibial stem components now in place. No malalignment. No periprosthetic fracture or lucency. Expected soft tissue emphysema . A knee joint effusion is likely present. Surrounding soft tissue swelling. Overlying skin jeramie. IMPRESSION: Expected postsurgical changes status post revision of the now constrained total right knee arthroplas ty with patellar resurfacing. Electronically signed by: Ck Bunn M.D. 08/16/2019 12:25 PM
[2019-08-16] MEDS ORDERED: SODIUM CHLORIDE 0.9% 1000ML 1,000 ML IV SCH (13:05)
[2019-08-16] MEDS ORDERED: PHARMACY GLYCEMIC MGMT CONSULT STA (13:05)
[2019-08-16] MEDS ORDERED: ALUMINUM/MAGNESIUM SUSP 30 ML UDC PO PRN (13:05)
[2019-08-16] MEDS ORDERED: ALBUTEROL HFA 8 GM INHALER INH PRN (13:05)
[2019-08-16] MEDS ORDERED: METOCLOPRAMIDE HCL INJ 5 MG/ML 2 ML VIAL IV PRN (13:05)
[2019-08-16] MEDS ORDERED: HYDROmorphone INJ 0.5 MG/0.5 ML SYR IV PRN (13:05)
[2019-08-16] MEDS ORDERED: NALOXONE HCL 0.4 MG/1 ML VIAL/CARP IV PRN (13:05)
[2019-08-16] MEDS ORDERED: DiphenhydrAMINE HCL 50 MG/ML VIAL IV PRN (13:05)
[2019-08-16] MEDS ORDERED: BISACODYL 10 MG SUPP PR PRN (13:05)
[2019-08-16] MEDS ORDERED: LINACLOTIDE 72 MCG CAPSULE PO PRN (13:05)
[2019-08-16] MEDS ORDERED: MAGNESIUM HYDROXIDE SUSP 30 ML UDC PO PRN (13:05)
--- NOTE | 2019-08-16 13:55 | Anesthesiology Progress Note ---
Date of Service August 16, 2019 Anesthesia Post Procedure Vital Signs Vital Signs: Temp Pulse Pulse Resp BP Pulse Ox 08/16/19 13:35 62 16 113/71 96 08/16/19 13:21 58 L 16 105/66 96 08/16/19 13:10 36.4 C L 64 18 103/66 94 08/16/19 12:20 36.5 C 63 16 116/70 94 08/16/19 12:10 66 16 120/72 96 08/16/19 12:00 66 19 118/75 93 08/16/19 11:51 36.5 C 68 16 113/69 93 08/16/19 07:00 36.8 C 70 20 127/75 93 Pain Intensity Right Knee: Pain Intensity: 0 Transfer of Care Handoff Completed per policy Notes Mental Status: alert / awake / arousable Patient Amnestic to Procedure: Yes Nausea / Vomiting: adequately controlled Pain: adequately controlled Airway Patency, RR, SpO2: stable & adequate BP & HR: stable & adequate Hydration State: stable & adequate Anesthetic Complications: no major complications apparent
[2019-08-16] MEDS ORDERED: PHARMACY GLYCEMIC MGMT CONSULT PRN (14:00)
[2019-08-16] MEDS ORDERED: INSULIN GLARGINE SOLOSTAR 100 UNITS/ML 3 ML PEN SC ONE (14:00)
--- NOTE | 2019-08-16 14:00 | Discharge Summary ---
DATE OF POTENTIAL DISCHARGE: 08/17/2019. CHIEF COMPLAINT: Right knee pain and swelling. HISTORY OF PRESENT ILLNESS: The patient is admitted for elective revision right total knee replacement. Outpatient workup did not reveal any sepsis including alpha-defensin and culture. His x-rays revealed no gross loosening and malalignment of the distal femur. Bone scan reveals the same. At this point in time, he is admitted for elective revision right total knee replacement. PAST MEDICAL HISTORY: Remarkable for hypertension, elevated cholesterol, BiPAP, sleep apnea, diabetes, osteoarthritis, GERD, hiatal hernia, and obesity. PAST SURGICAL HISTORY: Remarkable for left great toe partial amputation, right total knee replacement in 2012, left total knee replacement in 2013, ear surgery with stapes removal and prosthesis insertion, pacemaker implantation, heart catheterization, and carpal tunnel release. ALLERGIES: THE BLUE DYE ADHESIVE TAPE AND CYMBALTA. PREADMISSION MEDICATIONS: Include Percocet, atorvastatin, furosemide, isosorbide mononitrate, Lyrica, metformin, metoprolol, pantoprazole, tamsulosin, Toviaz, Tradjenta, Trulicity. He will be discharged on Coumadin, keep INR 1.8-2.2. Use his usual pain medications. FAMILY HISTORY: Noncontributory. SOCIAL HISTORY: Reveals that he is . No tobacco or alcohol use. REVIEW OF SYSTEMS: Noncontributory. Hospital course has been uneventful. He tolerated the procedure well. Postop x-rays look excellent. Plan is to be full weightbearing. Protect with knee immobilizer for 2-3 days. Discharge on Coumadin, keep INR 1.8-2.2. Follow up in 2 weeks for staple removal. Keep the bulky dressing on for 2 weeks.
[2019-08-16] MEDS: ORTHO WARFARIN NOMOGRAM SCH (14:09)
[2019-08-16] MEDS: ACETAMINOPHEN 500 MG TAB PO SCH ×2 (14:14→21:21)
[2019-08-16] MEDS ORDERED: GLUCAGON FOR INJ 1 MG VIAL IM PRN (14:15)
[2019-08-16] MEDS ORDERED: CARBOHYDRATES FOR HYPOGLYCEMIA PO PRN (14:15)
[2019-08-16] MEDS ORDERED: GLUCOSE 10 TABS/TUBE PO PRN (14:15)
[2019-08-16] MEDS: KETOROLAC 30 MG/ML VIAL IV SCH ×2 (14:15→19:36)
[2019-08-16] MEDS ORDERED: DEXTROSE 50% 50 ML SYRINGE IV PRN (14:15)
[2019-08-16] MEDS ORDERED: GLUCOSE 40% GEL 15 GM TUBE PO PRN (14:15)
[2019-08-16] MEDS: CEFAZOLIN 2000MG 2,000 MG/15 ML SYR IV SCH ×2 (14:16→21:26)
[2019-08-16] MEDS: INSULIN ASPART 100 UNITS/ML 3 ML PEN SC SCH ×3 (14:20→21:16)
--- NOTE | 2019-08-16 14:28 | Pharmacy Report ---
Glycemic Control Consultation - Date of Service August 16, 2019 - Scope Scope: Glycemic Pharmacist consulted by Dr Underwood on 08/16 for glycemic control and to write orders per [facility] inpatient glycemic control protocol - Objective Weight: 145.4 kg Accuchecks BSG (last 24hrs): 08/16/19 08/16/19 08/16/19 06:51 11:54 13:19 POC Glucose 191 H 161 H 166 H HbA1c: Hemoglobin A1c 7.5 % (4.5-5.6) H 07/24/19 13:15 - Recent Pertinent Medications Outpatient Anti-diabetic Regimen: * trulicity, linagliptan, metformin * A1c = 7.5 % [07/24/19] Risk Factors for Insulin Resistance: * Recent Surgery: POD 0 * Diet: T2DM - Assessment & Plan Assessment & Plan: ASSESSMENT: * 63 year old s/p total knee revision. Type 2 diabetic managed on trulicity, linagliptan and metformin at home. Most recent A1C of 7.5% * Pharmacy consulted for glycemic management postop. Did receive ortho (with dexamethasone), however no other steroids * Fasting BSG elevated on admission at 191 mg/dL, likely related to stress of surgery. Will utilize basal/bolus dosing postop PLAN FOR INPATIENT GLYCEMIC CONTROL: * Pt is maintained on oral antidiabetic agents as an outpatient * Oral agents are not recommended for inpatient use d/t drug interactions, changing PO intake, and difficulty titrating for acute hyper/hypoglycemia. ADA recommends re-initiating outpatient oral agents 1-2 days prior to discharge if/when appropriate if they were held on admission. * Will hold oral agents for admission and utilize SQ basal bolus insulin regimen which is the recommended regimen for inpatient glycemic control. * Will initiate weight based insulin dosing for insulin patti patient and titrate based on BSG trends. * Basal insulin * Lantus 35 units x 1 (~0.2 units/kg act BW; ~0.3 units/kg adj BW) - this is due to high AM fasting * Will evaluate 08/17 if more Lantus is necessary * Bolus insulin * NovoLog per scale ACHS or Q6hrs while NPO * Goal Range: Low 110 mg/dL - High 140 mg/dL * Correction Factor: 15 mg/dL/unit * Nutritional / Prandial insulin per carb ratio of 1 unit per 5 grams CHO consumed * Please note that the plan above was derived based on current level of insulin resistance and hospital stress. These recommendations are appropriate for inpatient admission only. Plan of care upon discharge will need to be reassessed to avoid potential outpatient hypo/hyperglycemia. Thank you.
[2019-08-16] MEDS ORDERED: WARFARIN SOD 5 MG TAB PO SCH (16:00)
[2019-08-16] MEDS: ASCORBIC ACID 500 MG TAB PO SCH (16:01)
[2019-08-16] MEDS: FERROUS GLUCONATE 324 MG TAB PO SCH (16:01)
[2019-08-16] MEDS ORDERED: TRANEXAMIC ACID 1,000 MG in 0.9 % SODIUM CHLORIDE 100 ML IV SCH (17:54)
[2019-08-16] MEDS ORDERED: ASPIRIN 81 MG ECTAB PO SCH (21:00)
[2019-08-16] MEDS ORDERED: SENNA 8.6 MG TAB PO SCH (21:00)
[2019-08-16] MEDS ORDERED: ATORVASTATIN 40 MG TAB PO SCH (21:00)
[2019-08-16] MEDS ORDERED: TAMSULOSIN HCL 0.4 MG CAP PO SCH (21:00)
[2019-08-16] MEDS: DOCUSATE SODIUM 100 MG CAP PO SCH (21:18)
[2019-08-16] MEDS: PREGABALIN 75 MG CAP PO SCH (21:21)
[2019-08-16] MEDS: ONDANSETRON INJ 2 MG/ML 2 ML VIAL IV PRN (23:26)
[2019-08-16] MEDS: OXYCODONE HCL IR 5 MG TAB (IMMEDIATE RELEASE) PO PRN (23:26)
[2019-08-17] MEDS: INSULIN ASPART 100 UNITS/ML 3 ML PEN SC SCH ×3 (00:47→08:46)
[2019-08-17] MEDS: KETOROLAC 30 MG/ML VIAL IV SCH ×2 (01:03→07:50)
[2019-08-17] MEDS: ONDANSETRON INJ 2 MG/ML 2 ML VIAL IV PRN (05:19)
[2019-08-17] MEDS: ACETAMINOPHEN 500 MG TAB PO SCH (05:19)
[2019-08-17 06:39] LABS: Hematocrit (blood only) 38.5 % (42-52); Hemoglobin 13.3 g/dL (14.0-18.0); Mean Corpuscular Hemoglobin 31.4 pg (25-34); Mean Corpuscular Hgb Conc 34.5 g/dL (32-36); Mean Corpuscular Volume 90.8 fL (80-100); Mean Platelet Volume 10.1 fL (7.4-10.4); Platelet Count 165 K/uL (130-400); RDW Coefficient of Variation 15.1 % (11.5-14.5); RDW Standard Deviation 50.2 fL (36.4-46.3); Red Blood Count 4.24 M/uL (4.7-6.1); White Blood Count 9.65 K/uL (4.8-10.8)
[2019-08-17 06:47] LABS: Prothrombin Time 10.7 Seconds (9.0-12.0)
[2019-08-17] MEDS ORDERED: AZITHROMYCIN 250 MG TAB PO ONE (06:48)
[2019-08-17 07:08] LABS: Calcium 8.7 mg/dl (8.5-10.1); Creatinine Clr Calc Pharmacy 67.7 ml/min; Est GFR (African American) 52.4; Est GFR (Non-African American) 45.2; Potassium 4.8 mmol/L (3.5-5.1)
[2019-08-17] MEDS: ASCORBIC ACID 500 MG TAB PO SCH (07:48)
--- NOTE | 2019-08-17 08:14 | Progress Note ---
DATE: 08/17/2019 SUBJECTIVE: Postop day #1 status post right total knee revision. The patient is sitting up in bed. He is a little bit uncomfortable with some gas pain in his left upper quadrant. Denies any chest pain, shortness of breath, fever, chills, nausea, vomiting or headache. He states he feels like he is breathing fine. Denies any nausea. He is passing some gas. Vital signs are stable. He is afebrile. He is not tachycardic. Blood pressure is stable at 142/76. Respiratory rate 18. On room air. Hematocrit stable at 38.5. INR is pending. PRP is pending. Neurovascular check right and left lower extremity, both within normal limits. Wound dressing clean, dry and intact. Can do a straight leg raise. Calves nontender. Abdomen nontender. Is tense based on his baseline due to intra-abdominal obesity. ASSESSMENT: Overall, doing well. At this point in time, needs PT, OT, case management finalization of home plans. Potential discharge later this afternoon/later today. Hopefully, will be able to be discharged. Everything has been arranged at this point in time. Coumadin per nomogram.
[2019-08-17] MEDS: FERROUS GLUCONATE 324 MG TAB PO SCH (08:42)
[2019-08-17] MEDS: DOCUSATE SODIUM 100 MG CAP PO SCH (08:42)
[2019-08-17] MEDS: PREGABALIN 75 MG CAP PO SCH (08:50)
[2019-08-17] MEDS ORDERED: INSULIN GLARGINE SOLOSTAR 100 UNITS/ML 3 ML PEN SC SCH (09:00)
[2019-08-17] MEDS ORDERED: ISOSORBIDE MONO EXTENDED REL 30 MG TABCR PO SCH (09:00)
[2019-08-17] MEDS ORDERED: METOPROLOL SUCC 50MG EXT REL TAB PO SCH (09:00)
[2019-08-17] MEDS ORDERED: FUROSEMIDE 40 MG TAB PO SCH (09:00)
[2019-08-17] MEDS ORDERED: MULTIVITAMIN TAB PO SCH (09:00)
[2019-08-17] MEDS ORDERED: PANTOprazole 40 MG TAB PO SCH (09:00)
[2019-08-17] MEDS ORDERED: ENALAPRIL MALEATE 5 MG TAB PO SCH (09:00)
--- NOTE | 2019-08-17 09:20 | Orthopedic Progress Note ---
Date of Service August 17, 2019 Assessment & Plan (1) Status post revision of total replacement of right knee: Dressing was changed by me. New pressure dressing was applied with web roll and his JB hose. PT/OT this morning. I did have the nursing staff give him some Maalox for his stomach upset. Hopefully this will improve. Anticipate discharge to home today with home health services from [facility] if he continues to do well Follow-up in the office in 2 weeks as scheduled with me for staple removal Continue use of the knee immobilizer when weightbearing until tomorrow morning Keep the dressing clean and dry until the jeramie are removed. Subjective Patient was seen in his room this morning. He states he did well last evening. He has had some recurrent left upper abdominal discomfort with persisting belching. He denies being nauseated. No chest pain or shortness of breath. He states his knee is really not that painful. He thinks he only took 1 tablet of Percocet since surgery. Review of Systems Review of Systems: Other Unchanged from preop Physical Exam Physical Exam: General: Well-developed obese middle-aged male in no acute distress. Sitting in a chair. Alert and oriented. Skin: Warm and dry with good turgor. The patient is not diaphoretic. Postop dressings on the right knee are upon removal, he has no active drainage. Expected postoperative ecchymosis. Scant edema. Minimal intra-articular effusion. [place] are intact. Wound edges are well approximated. Musculoskeletal: Patient is able to perform straight leg raise with the right knee. He has full terminal extension. Flexion to around 60 degrees. Intact motor function to the ankle and toes. Neurologic: Gross sensation is intact across the right leg by soft touch. Peripheral pulses are 2+. Results & Data Vital Signs (Past 12 Hours) Vital Signs Temp Pulse Resp BP Pulse Ox 08/17/19 09:01 37.1 C 74 20 149/74 H 95 08/17/19 07:39 37.1 C 74 20 149/74 H 95 08/17/19 03:30 36.6 C 66 18 142/76 H 94 08/16/19 23:14 36.6 C 65 16 120/69 92
--- NOTE | 2019-08-17 09:55 | Anesthesiology Progress Note ---
Date of Service August 17, 2019 Anesthesia Post Procedure Vital Signs Vital Signs: Temp Pulse Pulse Resp BP Pulse Ox 08/17/19 09:01 37.1 C 74 20 149/74 H 95 08/17/19 07:39 37.1 C 74 20 149/74 H 95 08/17/19 03:30 36.6 C 66 18 142/76 H 94 08/16/19 23:14 36.6 C 65 16 120/69 92 08/16/19 20:45 36.8 C 74 17 127/86 91 08/16/19 16:17 36.4 C L 61 16 114/70 93 08/16/19 14:35 64 16 120/71 97 08/16/19 13:35 62 16 113/71 96 08/16/19 13:21 58 L 16 105/66 96 08/16/19 13:10 36.4 C L 64 18 103/66 94 08/16/19 12:20 36.5 C 63 16 116/70 94 08/16/19 12:10 66 16 120/72 96 08/16/19 12:00 66 19 118/75 93 08/16/19 11:51 36.5 C 68 16 113/69 93 Pain Intensity Right Knee: Pain Intensity: 0 Notes Mental Status: alert / awake / arousable and participated in evaluation Nausea / Vomiting: adequately controlled Pain: adequately controlled Airway Patency, RR, SpO2: stable & adequate BP & HR: stable & adequate Hydration State: stable & adequate Neuraxial Anesthesia: sensory block resolved
--- NOTE | 2019-08-17 10:48 | Pharmacy Report ---
Pharmacy Glycemic Short Note 2 - Date of Service August 17, 2019 - Glycemic Short BSG Results (Last 24 hours): 08/16/19 08/16/19 08/16/19 11:54 13:19 17:13 Glucose POC Glucose 161 H 166 H 193 H 08/16/19 08/16/19 08/17/19 20:42 23:51 03:34 Glucose POC Glucose 234 H 158 H 168 H 08/17/19 08/17/19 06:15 08:24 Glucose 165 H POC Glucose 167 H OUTPATIENT ANTIDIABETIC REGIMEN: * trulicity, linagliptan, metformin * A1c = 7.5 % 110 ASSESSMENT: * 63 year old POD#1 s/p total knee revision. Type 2 diabetic managed on trulicity, linagliptan and metformin at home. Most recent A1C of 7.5% * outpatient regimen on hold for admission and pt being managed with SQ basal bolus insulin regimen per weight/stress dosing. * Moderate stress dosing utilized yesterday for elevated preop BSG and dxm in ortho mix. Steroid hyperglycemia effects should be wearing off today- will start to taper insulin regimen and prep for dc. PLAN FOR INPATIENT GLYCEMIC CONTROL: * Hold outpatient oral diabetes medications * Basal insulin: decrease dose * Lantus 25 units SQ QAM * Bolus insulin * NovoLog per scale ACHS or Q6hrs while NPO * Goal Range: Low 110 mg/dL - High 140 mg/dL * Correction Factor: 25 mg/dL/unit * Nutritional / Prandial insulin per carb ratio of 1 unit per 8 grams CHO consumed PLAN FOR DISCHARGE: * A1c is in goal range based on age/co-morbidities. No changes needed to outpatient regimen at this time.
[2019-08-17] MEDS: OXYCODONE HCL IR 5 MG TAB (IMMEDIATE RELEASE) PO PRN (11:05)
[2019-08-17] MEDS: ORTHO WARFARIN NOMOGRAM SCH (11:36)
[2019-08-17] MEDS ORDERED: WARFARIN SOD 5 MG TAB PO SCH (16:00)
== END 2019-08-17 12:27 | disposition home health service (06) | DRG 467 ==
LOC: ASU 06:07 → 3E 12:01